=== PATIENT | female | born 1970 | race Caucasian/White ===

== ENCOUNTER → 2018-05-03 | Outpatient (CLI) | payer OTHER | LOC: M ADAMS 08:40 | DX: M25.511 Pain in right shoulder (principal); M19.011 Primary osteoarthritis, right shoulder | CPT/HCPCS: 73030 ==

== ENCOUNTER → 2019-06-29 | Outpatient (CLI) | payer OTHER ==
--- NOTE | 2019-06-29 19:00 | REP ---
Lumbar spine series: Five views. History: Sciatica. Findings: There is a mild levoconvex curve on the frontal view in the lumbar spine. Spina bifida occulta is noted at L5. Pedicles and posterior elements are otherwise intact. There is no evidence of spondylolysis or spondylolisthesis. There is osteoarthritic facet hypertrophy bilaterally at L4-5 and L5-S1, mild in degree. Lateral view showed degenerative disc narrowing at L5-S1, L4-5 and to a lesser extent L3-4. Sacrum and SI joints are intact. Impression: Degenerative spondylosis changes and mild levoconvex curvature as noted above. No acute bony abnormality. Electronically Signed by Tye Guadarrama MD 06/29/2019 07:27 P
--- NOTE | 2019-06-29 19:01 | REP ---
Bilateral hip study: Four views. History: Sciatica. Findings: AP and frog-leg views of both hips demonstrate smooth rounded femoral heads. There is minimal inferior femoral acetabular spurring bilaterally consistent with osteoarthritis. There is a periarticular soft-tissue calcification adjacent to the greater trochanter on the left consistent with calcific tendonitis or bursitis. Vascular calcification is noted. Impression: Periarticular soft-tissue calcification at the greater trochanter on the left. Minimal osteoarthritic changes. No acute bony abnormality. Electronically Signed by Tye Guadarrama MD 06/29/2019 07:27 P
== END ==
LOC: M ADAMS 08:19
PROVIDERS: ATTEND Physician Assistant Medical
DX: M54.30 Sciatica, unspecified side (principal); M54.17 Radiculopathy, lumbosacral region

== ENCOUNTER → 2019-08-24 | Outpatient (REF) | payer OTHER ==
[2019-08-24 16:24] LABS: HEMATOCRIT 45.6 % (36.0-47.0); HEMOGLOBIN 15.6 g/dl (12.0-15.5); MEAN CORPUSCULAR HEMOGLOBIN 34.1 pg (27.0-33.0); MEAN CORPUSCULAR HGB CONC 34.2 g/dl (32.0-36.5); MEAN CORPUSCULAR VOLUME 99.8 fl (80.0-96.0); PLATELET COUNT, AUTOMATED 322 10^3/uL (150-450); RED BLOOD COUNT 4.57 10^6/uL (4.00-5.40); WHITE BLOOD COUNT 10.7 10^3/uL (4.0-10.0)
[2019-08-24 16:53] LABS: HEMOGLOBIN A1c 5.4 %
[2019-08-24 16:57] LABS: C REACTIVE PROTEIN QUANTITATIV < 0.30 MG/DL (0.00-0.30); CHOLESTEROL LEVEL 366 MG/DL (<200); CHOLESTEROL RISK RATIO 5.809 (<5); HDL CHOLESTEROL 63 MG/DL (>40); LDL CHOLESTEROL 245 MG/DL (<100); NON-HDL-C 303 MG/DL; RHEUMATOID FACTOR QUANT < 10.0 IU/ML (<15.0); TOTAL 25(OH) VITAMIN D 11.9 NG/ML (30.0-100.0); TRIGLYCERIDES LEVEL 291 MG/DL (<150)
[2019-08-24 16:58] LABS: VITAMIN B12 LEVEL 316 PG/ML
[2019-08-24 16:59] LABS: FOLATE 7.2 NG/ML
[2019-08-24 17:13] LABS: ERYTHROCYTE SEDIMENTATION RATE 26 mm/hr (0-30)
[2019-08-31 00:07] LABS: ANA (HEP2) Negative (.); HLA-B27 Negative (.); Lyme Disease IgG/IgM Antibodie <0.91 ISR (0.00-0.90); Lyme Disease IgM Ab Quantitati <0.80 index (0.00-0.79)
== END ==
LOC: M SFHCADAM 14:33
PROVIDERS: ATTEND Physician Assistant
DX: R09.89 Other specified symptoms and signs involving the circulatory and respiratory systems (principal); I83.893 Varicose veins of bilateral lower extremities with other complications; M48.062 Spinal stenosis, lumbar region with neurogenic claudication; F17.210 Nicotine dependence, cigarettes, uncomplicated; G99.0 Autonomic neuropathy in diseases classified elsewhere; Q76.0 Spina bifida occulta; M47.9 Spondylosis, unspecified

== ENCOUNTER → 2019-09-13 | Outpatient (CLI) | payer OTHER ==
--- NOTE | 2019-09-13 11:03 | REPMRS ---
Patient History The patient states she has not had a clinical breast exam in over a year. Patient is postmenopausal and had first child at age 31. No known family history of cancer. Digital Mammo Screening Bilat: September 13, 2019 - Exam #: [id number] Bilateral CC and MLO view(s) were taken. Technologist: Angelica Chirinos, Technologist No prior studies available for comparison. FINDINGS: The breast tissue is heterogeneously dense. This may lower the sensitivity of mammography. There is no evidence of dominant mass, architectural distortion, or grouped microcalcification typical of malignancy. 3-D tomosynthesis shows no additional findings. Assessment: BI-RADS/ACR category 1 mammogram. Negative Mammogram. Recommendation Routine screening mammogram of both breasts in 1 year (for women over age 40). This patient's Lifetime Breast Cancer RIsk is estimated at 11.6 %. This mammogram was interpreted with the aid of an FDA-approved computer-aided dectection system. Electronically Signed By: Zhen Guadarrama MD 09/13/19 [id number]
--- NOTE | 2019-09-14 03:15 | REP ---
Clinical: Hypertension and chronic medical renal disease. Technique: Eden scale and color Doppler evaluation of the kidneys and renal vasculature using curved array transducer. Findings: The kidneys are essentially normal in contour size and echogenicity and reniform shape without hydronephrosis, nephrolithiasis, or renal mass lesion. Right kidney measures 10.6 x 6.0 x 4.2 cm and includes subcentimeter lower pole simple cyst. Left kidney measures 10.1 x 5.2 x 5.2 cm. Bladder is incompletely distended and grossly normal by current evaluation. Color Doppler evaluation of the renal vasculature demonstrates normal arterial wave patterns, velocities, renal aortic ratios, resistive indices and the acceleration time. No sonographic evidence for renal arterial stenosis noted. Renal vein is patent. Right Kidney: Peak arterial velocity: 188 cm/sec . Renal aortic ratio: 3.9 . Resistive indices: 0.62 - 0.68 . Acceleration times: 0.04 . Left kidney: Peak arterial velocity: 164 cm/sec . Renal aortic ratio: 3.4 . Resistive indices: 0.59 - 0.74 . Acceleration times: 0.02 - 0.05 . Impression: 1. Essentially normal appearance the bilateral kidneys with sub centimeter right renal cyst noted. 2. Elevated renal:aortic ratios with otherwise normal Doppler findings. This may be secondary to decreased aortic velocity. Correlation is recommended and if necessary MRA or CTA evaluation of the aorta and renal arteries may be considered. Electronically Signed by Marco Nayak MD 09/14/2019 03:06 A
--- NOTE | 2019-09-14 03:17 | REP ---
Clinical: Carotid bruit Technique: Eden scale and color Doppler evaluation using linear high frequency transducer Findings: Two-dimensional eden scale and color images demonstrate minimal atheromatous plaquing without appreciable narrowing. Color Doppler interrogation demonstrates normal arterial wave patterns and velocities with no significant spectral broadening. Normal flow direction is appreciated in the bilateral vertebral arteries. RIGHT (cm/s) LEFT (cm/s) ICA peak systolic velocity 106.0 110.0 ICA diastolic velocity 40.4 46.0 ECA peak systolic velocity 77.0 70 2.6 CCA peak systolic velocity 106.0 108.0 ICA/CCA ratio 1.00 1.02 Impression: No hemodynamically significant areas of narrowing or stenosis appreciated. Based on set standards narrowing falls within the less than 50% range. Electronically Signed by Marco Nayak MD 09/14/2019 03:09 A
== END ==
LOC: M RAD 07:20
PROVIDERS: ATTEND Physician Assistant
DX: R09.89 Other specified symptoms and signs involving the circulatory and respiratory systems (principal); Z12.31 Encounter for screening mammogram for malignant neoplasm of breast; Z78.0 Asymptomatic menopausal state

== ENCOUNTER → 2019-09-13 | Outpatient (CLI) | payer OTHER ==
--- NOTE | 2019-09-15 21:07 | ECHO ---
DATE OF PROCEDURE: 09/13/2019 REFERRING INDIVIDUAL: Zayra Interiano, Physician Public Information Director INDICATION: Cardiac murmur, unspecified. HEIGHT: 170 cm WEIGHT: 63 kg 2D MEASUREMENTS: Ventricular septum: 1.10 cm Posterior wall: 1.00 cm Left ventricle diastole: 3.8 cm Left atrium: 2.7 cm Left atrial volume index: 12 Aortic root: 3.3 cm Inferior vena cava: 1.5 cm DOPPLER MEASUREMENTS: No aortic regurgitation. No mitral regurgitation. No tricuspid regurgitation. No pulmonic regurgitation. Aortic valve velocity: 113 cm/s LVOT velocity: 108 cm/s Mitral E velocity: 57.0 cm/s Mitral A velocity: 67.3 cm/s Mitral deceleration time: 158 ms Pulmonary acceleration time: 137 ms MITRAL ANNULAR TISSUE DOPPLER: E prime lateral: 9.6 cm/s E prime septal: 8.2 cm/s DESCRIPTION: Rhythm was mostly sinus tachycardia with some periods of sinus bradycardia. Image quality was fair. No pericardial effusion. This was a 2D, M-mode, color flow Doppler and pulse wave Doppler examination and included mitral annular tissue Doppler. CONCLUSIONS: 1. Normal echocardiogram Doppler. 2. Normal left ventricle internal dimensions and wall thickness. Normal regional left ventricular (LV) wall motion and wall thickening. Normal LV systolic function. Left ventricular ejection fraction (LVEF) 64% (3D). LV diastolic function within normal limits for age. 3. Normal appearing and normally functioning cardiac valves.
== END ==
LOC: M CARPUL 09:00
PROVIDERS: ATTEND Physician Assistant
DX: R01.1 Cardiac murmur, unspecified (principal)

== ENCOUNTER → 2019-09-20 | Outpatient (REF) | payer OTHER | LOC: M SFHCADAM 13:21 | PROVIDERS: ATTEND Physician Assistant | DX: Z12.4 Encounter for screening for malignant neoplasm of cervix (principal) ==

== ENCOUNTER → 2019-09-21 | Outpatient (REF) | payer OTHER ==
[2019-09-21 13:09] LABS: CHOLESTEROL RISK RATIO 5.581 (<5)
== END ==
LOC: M SFHCADAM 08:27
PROVIDERS: ATTEND Physician Assistant
DX: M79.10 Myalgia, unspecified site (principal); E78.00 Pure hypercholesterolemia, unspecified

== ENCOUNTER → 2019-10-31 | Outpatient (CLI) | payer OTHER ==
--- NOTE | 2019-10-31 10:36 | REP ---
Clinical: Symptoms related to atherosclerotic disease and intermittent claudication. Technique: Real time eden scale and color Doppler evaluation of the bilateral lower extremity arterial vasculature using linear high frequency transducer. Findings: Eden scale and color images demonstrate severe bilateral atheromatous plaquing without obvious focal areas of stenosis or occlusion. Doppler interrogation demonstrates monophasic arterial wave patterns bilaterally. Right MYKE: 0.6 Left MYKE: 0.7 Peak systolic velocities (cm/sec) RIGHT LEFT Common femoral artery 52.1 88.7 Profunda femoris 48.5 85.2 SFA (proximal) 51.4 54.7 SFA (mid) 57.5 63.6 SFA (distal) 45.5 33.7 Popliteal artery 30.7 24.6 KELSEY (prox.) 28.1 12.0 Tibioperoneal trunk 31.0 28.9 ASPHALT STILL OPERATOR (prox.) 34.0 19.8 ASPHALT STILL OPERATOR (distal) 9.8 24.4 KELSEY (distal) 5.6 24.5 Impression: Severe bilateral atheromatous plaquing with decreased velocities. No focal area of stenosis or occlusion identified. Electronically Signed by Marco Nayak MD 10/31/2019 10:27 A
== END ==
LOC: M RAD 08:40
PROVIDERS: ATTEND Physician Assistant
DX: I70.213 Atherosclerosis of native arteries of extremities with intermittent claudication, bilateral legs (principal)

== ENCOUNTER → 2019-11-16 | Outpatient (REF) | payer OTHER ==
[2019-11-16 12:52] LABS: HEMATOCRIT 44.9 % (36.0-47.0); HEMOGLOBIN 14.7 g/dl (12.0-15.5); MEAN CORPUSCULAR HEMOGLOBIN 32.7 pg (27.0-33.0); MEAN CORPUSCULAR HGB CONC 32.7 g/dl (32.0-36.5); PLATELET COUNT, AUTOMATED 278 10^3/uL (150-450); RED BLOOD COUNT 4.49 10^6/uL (4.00-5.40); WHITE BLOOD COUNT 9.4 10^3/uL (4.0-10.0)
[2019-11-16 12:59] LABS: BLOOD UREA NITROGEN 7 MG/DL (7-18); CALCIUM LEVEL 9.8 MG/DL (8.5-10.1); CARBON DIOXIDE LEVEL 27 MEQ/L (21-32); CHLORIDE LEVEL 102 MEQ/L (98-107); CREATININE FOR GFR 0.84 MG/DL (0.55-1.30); GLOMERULAR FILTRATION RATE > 60.0 (>51); GLUCOSE, FASTING 91 MG/DL (70-100); POTASSIUM SERUM 4.2 MEQ/L (3.5-5.1); SODIUM LEVEL 137 MEQ/L (136-145)
== END ==
LOC: M LABDRWAD 12:25
PROVIDERS: ATTEND Physician Assistant
DX: Z01.818 Encounter for other preprocedural examination (principal)

== ENCOUNTER → 2019-12-21 | Outpatient (CLI) | payer OTHER ==
[~2019-12-21] MED LIST: ASPI81TA26 PO; ATOR40TA75 PO; CLOP75TA2 PO; CLOPIDOGREL 75 MG TAB As Ordered ONE; DULO1CAP4 PO; GABA-843 PO; HEPARIN 1,000 UNITS/ML 10ML VIAL (FOR RADIOLOGY& DIALYSIS ONLY)(J1644-10) As Ordered ONE; ISOVUE-300 61% 50ML VIAL (Q9967) As Ordered ONE; LIDOCAINE 1% MDV 20ML VIAL As Ordered ONE; MELO15TA28 PO; MIDAZOLAM INJ 2 MG/2 ML VIAL (J2250) As Ordered ONE; VITA200028 PO; diazePAM 5 MG TAB As Ordered ONE; fentaNYL 100 MCG/2 ML INJECTION (J3010) As Ordered ONE
[2019-12-21 07:03] LABS: HEMATOCRIT 44.5 % (36.0-47.0); HEMOGLOBIN 15.2 g/dl (12.0-15.5); MEAN CORPUSCULAR HEMOGLOBIN 33.3 pg (27.0-33.0); MEAN CORPUSCULAR HGB CONC 34.2 g/dl (32.0-36.5); MEAN CORPUSCULAR VOLUME 97.4 fl (80.0-96.0); PLATELET COUNT, AUTOMATED 265 10^3/uL (150-450); RED BLOOD COUNT 4.57 10^6/uL (4.00-5.40); WHITE BLOOD COUNT 8.9 10^3/uL (4.0-10.0)
[2019-12-21 07:28] LABS: ALBUMIN 4.1 GM/DL (3.2-5.2); ALT/SGPT 48 U/L (12-78); BILIRUBIN,TOTAL 0.9 MG/DL (0.2-1.0); BLOOD UREA NITROGEN 9 MG/DL (7-18); CALCIUM LEVEL 9.7 MG/DL (8.5-10.1); CARBON DIOXIDE LEVEL 29 MEQ/L (21-32); CHLORIDE LEVEL 105 MEQ/L (98-107); CREATININE FOR GFR 0.86 MG/DL (0.55-1.30); GLOMERULAR FILTRATION RATE > 60.0 (>51); GLUCOSE, FASTING 97 MG/DL (70-100); POTASSIUM SERUM 4.4 MEQ/L (3.5-5.1); SODIUM LEVEL 140 MEQ/L (136-145); TOTAL PROTEIN 7.6 GM/DL (6.4-8.2)
--- NOTE | 2019-12-21 09:17 | ROOPDOC ---
[facility] Report Of Operation Report of Operation DATE OF PROCEDURE: 12/21/19 PREPROCEDURE DIAGNOSES: Atherosclerosis the [place] vessels with short distance lifestyle limiting claudication POSTPROCEDURE DIAGNOSES: Same PROCEDURE: 1. Aortoiliofemoral arteriogram with bilateral femoral runoff 2. Left external iliac and common iliac balloon expandable stents: 2 (8 x 57), 7 x 37, 6 x 37 express stents 3. Completion arteriograms SURGEON: Joie Weiner MD ANESTHESIA: Local anesthesia with 7 mL lidocaine. Moderate intravenous conscious sedation that was supervised by Dr. Weiner. The patient was independent [place] in her by registered nurse assigned at the Department of radiology using automated blood pressure, EKG, and pulse oximetry. The detailed sedation record is probably stored in the hospital information system. The following is a brief sedation record: Start time 07:39, stop time 08:57, fentanyl 150 g IV, Versed 2 mg IV. INDICATION FOR PROCEDURE: This is a very pleasant 49-year-old patient with short distance long recovery lifestyle limiting claudication. She is a smoker, we've had lengthy discussions about the importance of smoking cessation for long-term limb preservation. The patient is willing to quit and has been receptive to our discussions. Today we plan on doing an arteriogram and we suspect aortoiliac disease. Her lower extremity arterial duplex did not show any focal occlusions, but her ABIs were 0.6 and she did have some calcifications through the lower ext remities. Risks benefits and alternatives to an arteriogram with potential intervention were explained to the patient and she is agreeable to proceed. Informed consent was obtained. INTERPRETATION: 1. The aorta is small and ectatic but patent. The right common iliac artery is occluded at the origin and does not reconstitute until the mid distal common femoral artery where thready collaterals fill the vessel. The left common iliac hypogastric and external iliac artery are heavily diseased and extremely dimi nutive in size. There is a large bulky calcified plaque at the origin of the common iliac artery that narrows the origin by about 80-90%. Distal to this there is extensive disease along the iliac vessels giving a diffuse narrowing of about 60-70%. It is difficult to see flow through the common femoral artery on the left as the sheath takes up nearly the entire vessel and limits flow. We performed a runoff through the sheath through the mid distal femoral vessels, and did not runoff further due to the fact that the patient had washout of contrast and it was difficult to see due to limited flow. It appears that the profunda and as a phase are widely patent proximally, with some calcified disease distally, although this is not well visualized. The tibial vessels were not examined on this procedure. 2. After angioplasty and stenting of the left common and external iliac arteries, there is widely patent flow with no extravasation, no embolization, and no dissection noted. This dramatically improved the patient's inflow to the left lower extremity and her collateral system. REPORT OF OPERATION: The patient was brought to the angiographic suite in stable condition. Her bilateral groins were prepped and draped in a sterile fashion. A timeout was performed. Sedation was administered without complication. Local anesthesia was administered to the skin and subcutaneous tissue over the left common femoral artery. A microneedle was used to access the artery under ultrasound guidance and a wire was passed through this access under fluoroscopic guidance and the needle was removed and a micro-sheath was placed. Through this access, we passed to Glidewire which was challenging to navigate through the heavily calcified and nearly occlusive plaque in the iliac system. The wire was challenging to keep out of dissection planes, that eventually we were able to navigate the wire into the true lumen of the aorta. Infusion catheter was advanced over the wire and aortoiliac arteriogram was performed. Please interpretation above. We performed a femoral arteriogram through the sheath in the left common femoral artery. Please interpretation above. Since the patient o nly had left iliac inflow to the lower extremities and we plan to do a femorofemoral bypass to improve flow to the right lower extremity, we wanted to ensure she had better inflow through the left. We stented her entire iliac system with balloon expandable stents. We started at the distal external iliac artery and placed a 6 x 37 express stent. We then placed a 7 x 37 express stent with a 1 cm overlap just proximal to this. Through the common iliac artery with a 1 cm overlap we started with an 8 x 57 express stent, and build that proximally with a 1 cm overlap with another 8 x 57 express stent. The patient has very small vessels, but we wanted to increase her inflow to at least an 8mm diameter to improve flow for her femorofemoral bypass and perfusion to her ipsilateral leg. We performed contrast injections between stents to ensure we had not created a dissection embolization or extravasation. Following stent placement, the patient had widely open inflow to her left lower extremity. This concluded our procedure for today. The next part of her procedure will be done in the operating room. The Mynx closure device was deployed at the left common femoral artery with good hemostasis. Pressure was held for 10 minutes the patient was returned to recovery in stable condition. She tolerated the procedure and the sedation well. ESTIMATED BLOOD LOSS: Approximately 10 mL. COMPLICATIONS: None. PLAN: Our plan is for the patient to return to clinic to check her left groin access site and at that time we will discuss options with her for bilateral common femoral endarterectomies with patch angioplasty and a left to right femorofemoral bypass. We will start her on Plavix today for her iliac stents. She will have her first dose in recovery. She can resume her preop diet. She can resume normal activity after 24 hours. No strenuous exercise or heavy lifting for 24 hours. Of note, the patient did have an allergy to morphine and said she had significant swelling after receiving morphine after an orthopedic procedure 20 years ago, but she tolerated the fentanyl during this procedure very well without any adverse reaction. JOIE WEINER MD Dec 21, 2019 09:17
[2019-12-21 12:53] VITALS: BP 129/74
== END ==
LOC: M IRPRO 06:21
PROVIDERS: ATTEND Surgery Vascular Surgery
DX: I70.213 Atherosclerosis of native arteries of extremities with intermittent claudication, bilateral legs (principal); F17.210 Nicotine dependence, cigarettes, uncomplicated
CPT/HCPCS: 37221; 37223; 75630; 80053; 85027; 99152; 99153; C1760; C1769; C1876; C1887; C1894; J1644; J2250; J3010; Q9967

== ENCOUNTER → 2020-03-29 | Outpatient (CLI) | payer OTHER ==
[~2020-03-29] MED LIST changes: -CLOPIDOGREL 75 MG TAB As Ordered ONE; -HEPARIN 1,000 UNITS/ML 10ML VIAL (FOR RADIOLOGY& DIALYSIS ONLY)(J1644-10) As Ordered ONE; -ISOVUE-300 61% 50ML VIAL (Q9967) As Ordered ONE; -LIDOCAINE 1% MDV 20ML VIAL As Ordered ONE; -MIDAZOLAM INJ 2 MG/2 ML VIAL (J2250) As Ordered ONE; -diazePAM 5 MG TAB As Ordered ONE; -fentaNYL 100 MCG/2 ML INJECTION (J3010) As Ordered ONE
--- NOTE | 2020-03-29 19:19 | REP ---
Clinical: Trauma. Technique: Four views of the left hemithorax. Findings: There is a nondisplaced fracture involving the anterolateral margin of the right fifth rib. Impression: Nondisplaced fracture along the anterolateral margin of the right fifth rib. Electronically Signed by Marco Nayak MD 03/29/2020 07:11 P
--- NOTE | 2020-03-29 19:22 | REP ---
Clinical: Trauma. Technique: PA and lateral views of the chest. Findings: Left basilar atelectasis and possible small left pleural effusion. Remainder of lung simons are clear. No pneumothorax. Mediastinum and cardiac silhouette are normal. Skeletal structures appear grossly intact. Impression: Left basilar atelectasis and small pleural reaction/effusion. Electronically Signed by Marco Nayak MD 03/29/2020 07:14 P
== END ==
LOC: M LABSMTC 11:24 → M ADAMS 11:24
PROVIDERS: ATTEND Anesthesiology
DX: S22.31XA Fracture of one rib, right side, initial encounter for closed fracture (principal); X58.XXXA Exposure to other specified factors, initial encounter; Y92.9 Unspecified place or not applicable; J98.11 Atelectasis; J90 Pleural effusion, not elsewhere classified

== ENCOUNTER → 2020-03-29 | Outpatient (REF) | payer OTHER ==
[2020-03-29 18:29] LABS: HEMATOCRIT 39.3 % (36.0-47.0); HEMOGLOBIN 13.1 g/dl (12.0-15.5); MEAN CORPUSCULAR HEMOGLOBIN 33.4 pg (27.0-33.0); MEAN CORPUSCULAR HGB CONC 33.3 g/dl (32.0-36.5); MEAN CORPUSCULAR VOLUME 100.3 fl (80.0-96.0); PLATELET COUNT, AUTOMATED 374 10^3/uL (150-450); RED BLOOD COUNT 3.92 10^6/uL (4.00-5.40); WHITE BLOOD COUNT 9.4 10^3/uL (4.0-10.0)
[2020-03-29 18:30] LABS: ALBUMIN 3.6 GM/DL (3.2-5.2); ALT/SGPT 27 U/L (12-78); BILIRUBIN,TOTAL 0.5 MG/DL (0.2-1.0); BLOOD UREA NITROGEN 6 MG/DL (7-18); CALCIUM LEVEL 9.3 MG/DL (8.5-10.1); CARBON DIOXIDE LEVEL 28 MEQ/L (21-32); CHLORIDE LEVEL 103 MEQ/L (98-107); CHOLESTEROL LEVEL 248 MG/DL (<200); CHOLESTEROL RISK RATIO 4.275 (<5); CREATININE FOR GFR 0.84 MG/DL (0.55-1.30); GLOMERULAR FILTRATION RATE > 60.0 (>51); GLUCOSE, FASTING 86 MG/DL (70-100); HDL CHOLESTEROL 58 MG/DL (>40); LDL CHOLESTEROL 162 MG/DL (<100); NON-HDL-C 190 MG/DL; POTASSIUM SERUM 4.2 MEQ/L (3.5-5.1); SODIUM LEVEL 137 MEQ/L (136-145); TOTAL PROTEIN 7.1 GM/DL (6.4-8.2); TRIGLYCERIDES LEVEL 141 MG/DL (<150)
== END ==
LOC: M SFHCADAM 11:20
PROVIDERS: ATTEND Physician Assistant
DX: E78.00 Pure hypercholesterolemia, unspecified (principal)

== ENCOUNTER → 2020-05-08 | Outpatient (CLI) | payer OTHER ==
[~2020-05-08] MED LIST changes: +DILA2TAB6 PO; +NICO21DI6 TD; +PANT40TA29 PO; +PERCOCET PO; +VITA50005 PO; +WELL100T2 PO
== END ==
LOC: M LABSMTC 09:25
PROVIDERS: ATTEND Anesthesiology
DX: Z01.818 Encounter for other preprocedural examination (principal); Z11.59 Encounter for screening for other viral diseases
CPT/HCPCS: C9803; U0003

== ENCOUNTER → 2020-05-11 | Outpatient (CLI) | payer OTHER ==
--- NOTE | 2020-04-26 14:48 | HPEPDOC ---
[facility] Medical History & Physical Date of Admission May 11, 2020 Date of Service: May 11, 2020 History and Physical Vascular surgery. Dr. Weiner HPI: The patient is a 49-year-old female status post angiogram 12/21/[address] Weiner with severe atherosclerosis in the [place] arteries with occlus ion of the right iliac system and recent stenting of the left iliac system. Her left iliac system and collaterals from this provide flow to the bilateral lower extremities. We were not able to open outflow through the right iliac system, and it was discussed with the patient following the procedure that Dr. Weiner would like to proceed with bilateral common femoral endarterectomies and a left to right femorofemoral bypass. The patient was agreeable to proceed. Medical clearance is requested and displaced of the chart. Cardiac clearance and stress study placed with the chart. The patient had low risk stress study 03/28/20. PMHx: PAD Tobacco use Dyslipidemia Neuropathy Final stenosis PSHX: Angiogram 12/21/19 left external iliac and common iliac stents Left knee surgery ALLERGIES: NKDA SOCHX: Current smoker 1 pack per day for 25 years FAMHX: Anxiety/depression ROS: As noted in HPI, otherwise 11pt ROS of systems reviewed and unremarkable. PE: Const: Appears medically stable. No signs of apparent distress present. Head/Face: Normal on inspection. ENMT: Tympanic membranes: intact. External nose WNL. Neck: Supple, no carotid bruits present Resp: No wheezing. Diminished breath sounds on the left in the basilar region, no crackles or rales CV: Rate is regular. Rhythm is regular. Abdomen: Bowel sounds are positive. Abdomen is soft, nontender, and nondistended . Lymph: No palpable or visible regional lymphadenopathy. Musculo:Gait steady, distal pulses not palpable. Capillary refill 2 seconds on the right and one second on the left. No ulcers on the feet are noted. DP and PT signals are faint and monophasic. Skin:No rashes or lesions Neuro:Alert and oriented x3, moves all extremities equally, no focal neurologic deficits noted. Psych: Pleasant and cooperative A&P: The patient is a 49-year-old female status post angiogram 12/21/[address] Weiner with severe atherosclerosis in the [place] arteries with occlusion of the right iliac system and recent stenting of the left iliac system. Her left iliac system and collaterals from this provide flow to the bilateral lower extremities. We were not able to open outflow through the right iliac system, and it was discussed with the patient following the procedure that Dr. Weiner would like to proceed with bilateral common femoral endarterectomies and a left to right femorofemoral bypass. Medical clearance is placed in the chart. Cardiac clearance and stress study placed with the chart. Stress study is noted to be low risk. Informed consent is placed in the chart. Transfusion consent is placed with the chart. NPO Ancef 2 g IV preoperatively. Continue aspirin/statin. The patient is advised to hold Plavix the day prior to the procedure and the day of the procedure. CBC, BMP, INR, PTT, type and screen. IV fluids as per anesthesia. Tobacco use. The patient has been strongly advised to quit smoking. Potential health hazards are discussed with the patient including the advancement of atherosclerotic disease. We have discussed with the patient that continuing to smoke is associated with progression of disease, greater risk of complications and poor response of therapy. We have reviewed with the patient that vascular interventions are likely to fail if the patient continues to smoke. Vital Signs Admission vital signs pending. Laboratory Data Labs 24H Admission labs pending. Home Medications Scheduled Aspirin (Aspirin EC) 81 Mg Tablet.dr, 81 MG PO DAILY Atorvastatin Calcium (Atorvastatin Calcium) 40 Mg Tablet, 40 MG PO DAILY Clopidogrel Bisulfate (Clopidogrel) 75 Mg Tablet, 75 MG PO DAILY Duloxetine Hcl (Duloxetine HCl) 20 Mg Capsule.dr, 20 MG PO DAILY Gabapentin (Gabapentin) 300 Mg Capsule, 300 MG PO TID Meloxicam (Meloxicam) 15 Mg Tablet, 15 MG PO DAILY Miscellaneous Medications Ergocalciferol (Vitamin D2) (Vitamin D2) 2,000 Unit Tablet, 2,000 UNIT PO Allergies Coded Allergies: morphine (Verified Allergy, Intermediate, 12/21/19) A-FIB/CHADSVASC A-FIB History Current/History of A-Fib/PAF?: No Current PO Anticoag Therapy: Judy Mckeon Apr 26, 2020 14:48
--- NOTE | 2020-05-10 18:59 | HPE ---
DATE OF SCHEDULED ADMISSION: 05/11/2020 This is a preoperative history and physical for a case scheduled on 05/11/2020. CHIEF COMPLAINT: Bilateral lower extremity atherosclerosis of the [place] arteries with lifestyle limiting claudication. HISTORY OF THE PRESENT ILLNESS: Ms. Forte is a very pleasant 50-year-old patient with severe atherosclerosis of the [place] arteries with occlusion of the right iliac system and recent stenting of the left iliac system. Her left iliac system and collaterals from this provide flow to the bilateral lower extremities. We were not able to open outflow through the right iliac system, and we discussed with the patient following the procedure that we would like to proceed with bilateral common femoral endarterectomies and a left to right femoral-femoral bypass. The patient was agreeable to proceed. We initially planned to do her a few weeks ago; however, she had had a fall and had a nondisplaced rib fracture. I felt that it would be difficult for her to undergo a lengthy anesthesia, and do well afterwards without increased risk of atelectasis and postoperative pneumonia due to the rib fracture. Therefore, we gave the patient an incentive spirometer and postponed her surgery until today. She is doing much better status post her fall and is able to do deep breathing with her incentive spirometer without difficulty. We had lengthy discussions on multiple occasions about smoking cessation. The patient continues to try to cut back, and we have asked her to avoid using nicotine supplementation due to her severe peripheral vascular disease. Nicotine patches provide continuous vasoconstriction, which can be very detrimental in patients with severe vascular disease. She will continue to work towards her effort of smoking cessation. MEDICATIONS: - aspirin 81 mg daily - atorvastatin 40 mg daily - gabapentin 900 mg three times a day - Plavix 75 mg daily - vitamin D 1.25 mg capsule weekly ALLERGIES: MORPHINE. PAST MEDICAL HISTORY: Peripheral vascular disease. High cholesterol. SURGICAL HISTORY: Left knee anterior cruciate ligament (ACL) repair. Left elbow surgery. Recent arteriogram. FAMILY HISTORY: Heart disease. SOCIAL HISTORY: Patient is a long-term smoker, one pack per day, who has now cut down considerably and is trying to quit tobacco. She has a 25 pack-year history of tobacco use. She denies alcohol or illicit drug use. REVIEW OF SYSTEMS: CONSTITUTIONAL: She denies chills, fever, weight gain or weight loss. EYES: She denies vision changes. EARS, NOSE, MOUTH and THROAT: She denies hearing loss, congestion or dysphagia. CARDIOVASCULAR: Denies chest pain and palpitations. RESPIRATORY: Pleuritic chest pain has resolved, shortness of breath is rare, denies hemoptysis or cough. GASTROINTESTINAL: Denies abdominal pain, constipation, diarrhea, nausea or vomiting. GENITOURINARY: Denies dysuria. MUSCULOSKELETAL: Reports intermittent claudication. Denies myalgia pain or trouble walking. SKIN: Denies skin cancer, rash or wound. NEUROLOGIC: Denies focal deficits, headaches or seizures. PSYCHIATRIC: Denies anxiety or depression. ENDOCRINE: Denies diabetes, hyper or hypothyroidism. HEMATOLOGIC: (HEME): Denies anemia or excessive bruising. PHYSICAL EXAMINATION: On exam, patient is afebrile and vital signs are stable. CONSTITUTIONAL: She appears medically stable. No signs of distress are present. She is well groomed. HEAD AND FACE: Normal on inspection. Normocephalic. EARS, NOSE, MOUTH and THROAT: Tympanic membranes are intact. External nose within normal limits. NECK: Supple. No carotid bruits present. RESPIRATORY: No wheezing. Clear to auscultation. CARDIOVASCULAR: Regular rate and rhythm. ABDOMEN: Bowel sounds positive. Abdomen is soft, nontender, nondistended. LYMPHATICS: No palpable or visible lymphadenopathy. MUSCULOSKELETAL: Her gait is steady. Distal pulses not palpable. Capillary refill 2 seconds on the right and 1 second on the left. Feet are warm. No ulcers on the feet are noted. Dorsalis pedis (DP) and posterior tibialis (PT) signals are faint and monophasic. SKIN: No rashes or lesions. NEUROLOGIC: Alert and oriented times three, moves all extremities equally. No focal neurologic deficits noted. PSYCHIATRIC: Pleasant and cooperative. ASSESSMENT AND PLAN: Very pleasant 50-year-old patient with severe atherosclerosis of the [place] arteries and lifestyle-limiting claudication, status post stenting of the left iliac system with history of tobacco abuse. 1. Continue incentive spirometer perioperatively 2. Continue with efforts for smoking cessation. 3. Will proceed with bilateral common femoral endarterectomies with patch angioplasty and [id number] femoral-femoral bypass. We appreciate the opportunity to participate in the care of this patient. CORY
[~2020-05-11] VITALS: Ht 165.1 cm; Wt 72.5 kg
[~2020-05-11] MED LIST changes: +BUPIVACAINE/EPIN 0.5% 30 ML VIAL As Ordered ONE; +HEPARIN SOD (PORCINE) 5000UNITS/ML 1ML VIAL/SYRINGE As Ordered ONE; +LIDOCAINE 1% MDV 20ML VIAL SQ PRN; +LIDOCAINE 2% 100MG/5ML SDV (FOR ANES.) As Ordered ONE; +LR 1,000 ML IV ONE; +MIDAZOLAM INJ 2MG/2ML VIAL (J2250 PER 1MG) As Ordered ONE; +ONDANSETRON 4MG/2ML VIAL As Ordered ONE; +ROCURONIUM BROMIDE 50 MG/5 ML VIAL As Ordered ONE; +SUGAMMADEX SODIUM 500 MG/5 ML VIAL (BRIDION) As Ordered ONE; +THROMBIN SOLN 5,000 UNITS VIAL As Ordered ONE; +ceFAZolin SOD 2 GM in IV 1 EA IV ONE; +dexameTHASONE 4 MG/ML 1ML VIAL (J1100 PER 1MG) As Ordered ONE; +fentaNYL 100 MCG/2 ML INJECTION (J3010) As Ordered ONE; +propofoL 200 MG/20 ML VIAL As Ordered ONE
[2020-05-11 07:02] LABS: HEMATOCRIT 40.8 % (36.0-47.0); HEMOGLOBIN 13.9 g/dl (12.0-15.5); MEAN CORPUSCULAR HEMOGLOBIN 32.8 pg (27.0-33.0); MEAN CORPUSCULAR HGB CONC 34.1 g/dl (32.0-36.5); MEAN CORPUSCULAR VOLUME 96.2 fl (80.0-96.0); PLATELET COUNT, AUTOMATED 264 10^3/uL (150-450); RED BLOOD COUNT 4.24 10^6/uL (4.00-5.40); WHITE BLOOD COUNT 11.2 10^3/uL (4.0-10.0)
[2020-05-11 07:10] LABS: INR 0.9; PARTIAL THROMBOPLASTIN TIME 33.5 SECONDS (25.0-38.4); PROTHROMBIN TIME 11.9 SECONDS (11.8-14.0)
[2020-05-11 07:28] LABS: BLOOD UREA NITROGEN 7 MG/DL (7-18); CALCIUM LEVEL 9.6 MG/DL (8.5-10.1); CARBON DIOXIDE LEVEL 27 MEQ/L (21-32); CHLORIDE LEVEL 107 MEQ/L (98-107); CREATININE FOR GFR 0.92 MG/DL (0.55-1.30); GLOMERULAR FILTRATION RATE > 60.0 (>51); GLUCOSE, FASTING 104 MG/DL (70-100); POTASSIUM SERUM 4.1 MEQ/L (3.5-5.1); SODIUM LEVEL 139 MEQ/L (136-145)
[2020-05-11 07:31] VITALS: BP 140/84
--- NOTE | 2020-05-11 09:55 | ROOPDOC ---
[facility] Report Of Operation Report of Operation DATE OF PROCEDURE: 05/11/20 The patient's procedure was rescheduled. On discussion with her this morning prior to her procedure, she told the preoperative nurse that she took her Plavix yesterday, and then relayed to me that she took her Plavix 2 days ago, but held it yesterday and today. It is unclear exactly when the patient did or did not take her Plavix, but it seems likely she only held it today. The patient was instructed to hold her Plavix from 05/08/2020, and these instructions were given to her with multiple verbal communications as well as a written letter sent to her home. I discussed with her that because she is having extensive open vascular surgery, and tunneling for the femoral to femoral bypass, it is too risky to proceed at this time due to higher risk of bleeding complications with Plavix. We will reschedule the patient as soon as possible, and ever reiterated to her the importance of holding her Plavix prior to surgery. Additionally, the patient reported to me that she broke her fifth toe about a week and half ago. She says she stubbed it and it has been hurting ever since. She did not receive medical care for this. She did not discuss with her primary doctor, nor did she go to the emergency room for an x-ray or workup. On my exam, the right fifth toe is somewhat swollen, very tender to palpation, but no obvious deformity or crepitance is noted. Initially, I told the patient we would obtain an x-ray postop, but since her surgery has been canceled for today, I asked her if she would like to go to the emergency room to be evaluated. While discussing this with her, she is ambulating around the room picking up her belongings without any signs of discomfort in her right foot. She says she would prefer not to go to the ER and will discuss her toe pain with her primary doctor and see if they feel she needs further evaluation. I encouraged her to follow through with this. She is agreeable to this plan. JOIE MENDEZ MD May 11, 2020 09:55
== END ==
LOC: M OR 06:36 → UNDOADMIN 06:36 → M LAB 06:36 → EDSTATUS 07:30
PROVIDERS: ATTEND Surgery Vascular Surgery
DX: I70.203 Unspecified atherosclerosis of native arteries of extremities, bilateral legs (principal)
CPT/HCPCS: 36415; 80048; 85027; 85610; 85730; 86850; 86900; 86901; 87486; 87581; 87633; 87798; J1644

== ENCOUNTER → 2020-05-12 | Outpatient (CLI) | payer OTHER ==
[~2020-05-12] MED LIST changes: -BUPIVACAINE/EPIN 0.5% 30 ML VIAL As Ordered ONE; -HEPARIN SOD (PORCINE) 5000UNITS/ML 1ML VIAL/SYRINGE As Ordered ONE; -LIDOCAINE 1% MDV 20ML VIAL SQ PRN; -LIDOCAINE 2% 100MG/5ML SDV (FOR ANES.) As Ordered ONE; -LR 1,000 ML IV ONE; -MIDAZOLAM INJ 2MG/2ML VIAL (J2250 PER 1MG) As Ordered ONE; -ONDANSETRON 4MG/2ML VIAL As Ordered ONE; -ROCURONIUM BROMIDE 50 MG/5 ML VIAL As Ordered ONE; -SUGAMMADEX SODIUM 500 MG/5 ML VIAL (BRIDION) As Ordered ONE; -THROMBIN SOLN 5,000 UNITS VIAL As Ordered ONE; -ceFAZolin SOD 2 GM in IV 1 EA IV ONE; -dexameTHASONE 4 MG/ML 1ML VIAL (J1100 PER 1MG) As Ordered ONE; -fentaNYL 100 MCG/2 ML INJECTION (J3010) As Ordered ONE; -propofoL 200 MG/20 ML VIAL As Ordered ONE
== END ==
LOC: M LABSMTC 08:59
PROVIDERS: ATTEND Anesthesiology
DX: Z01.818 Encounter for other preprocedural examination (principal); Z11.59 Encounter for screening for other viral diseases
CPT/HCPCS: C9803; U0003

== ENCOUNTER 2020-05-17 09:42 | Inpatient (IN) | payer OTHER ==
--- NOTE | 2020-05-16 16:31 | CR.PDOC ---
General Date of Consultation: May 17, 2020 Consultation CHIEF COMPLAINT: Bilateral lower extremity atherosclerosis of the [place] arteries with lifestyle limiting claudication. HISTORY OF THE PRESENT ILLNESS: Ms. Forte is a very pleasant 50-year-old patient with severe atherosclerosis of the [place] arteries with occlusion of the right iliac system and recent stenting of the left iliac system. Her left iliac system and collaterals from this provide flow to the bilateral lower extremities. We were not able to open outflow through the right iliac system, and we discussed with the patient following the procedure that we would like to proceed with bilateral common femoral endarterectomies and a left to right femoral-femoral bypass. The patient was agreeable to proceed. We initially planned to do her a few weeks ago; however, she had had a fall and had a nondisplaced rib fracture. I felt that it would be difficult for her to undergo a lengthy anesthesia, and do well afterwards without increased risk of atelectasis and postoperative pneumonia due to the rib fracture. Therefore, we gave the patient an incentive spirometer and postponed her surgery until surgery date last week, but we had to postpone the procedure again because the patient did not hold her Plavix prior to the procedure. Because this is extensive vascular surgery, bilateral common femoral endarterectomies, and tunneling for the femorofemoral bypass, I did not feel it was safe to proceed with full Plavix anticoagulation. The bleeding risk was too high. Therefore we scheduled the patient for today. We had lengthy discussions on multiple occasions about smoking cessation. The patient continues to try to cut back, and we have asked her to avoid using nicotine supplementation due to her severe peripheral vascular disease. Nicotine patches provide continuous vasoconstriction, which can be very detrimental in patients with severe vascular disease. She will continue to work towards her effort of smoking cessation. MEDICATIONS: - aspirin 81 mg daily - atorvastatin 40 mg daily - gabapentin 900 mg three times a day - Plavix 75 mg daily - vitamin D 1.25 mg capsule weekly ALLERGIES: MORPHINE. PAST MEDICAL HISTORY: Peripheral vascular disease. High cholesterol. SURGICAL HISTORY: Left knee anterior cruciate ligament (ACL) repair. Left elbow surgery. Recent arteriogram. FAMILY HISTORY: Heart disease. SOCIAL HISTORY: Patient is a long-term smoker, one pack per day, who has now cut down considerably and is trying to quit tobacco. She has a 25 pack-year history of tobacco use. She denies alcohol or illicit drug use. REVIEW OF SYSTEMS: CONSTITUTIONAL: She denies chills, fever, weight gain or weight loss. EYES: She denies vision changes. EARS, NOSE, MOUTH and THROAT: She denies hearing loss, congestion or dysphagia. CARDIOVASCULAR: Denies chest pain and palpitations. RESPIRATORY: Pleuritic chest pain has resolved, shortness of breath is rare, denies hemoptysis or cough. GASTROINTESTINAL: Denies abdominal pain, constipation, diarrhea, nausea or vomiting. GENITOURINARY: Denies dysuria. MUSCULOSKELETAL: Reports intermittent claudication. Denies myalgia pain or trouble walking. SKIN: Denies skin cancer, rash or wound. NEUROLOGIC: Denies focal deficits, headaches or seizures. PSYCHIATRIC: Denies anxiety or depression. ENDOCRINE: Denies diabetes, hyper or hypothyroidism. HEMATOLOGIC: (HEME): Denies anemia or excessive bruising. PHYSICAL EXAMINATION: On exam, patient is afebrile and vital signs are stable. CONSTITUTIONAL: She appears medically stable. No signs of distress are present. She is well groomed. HEAD AND FACE: Normal on inspection. Normocephalic. EARS, NOSE, MOUTH and THROAT: Tympanic membranes are intact. External nose within normal limits. NECK: Supple. No carotid bruits present. RESPIRATORY: No wheezing. Clear to auscultation. CARDIOVASCULAR: Regular rate and rhythm. ABDOMEN: Bowel sounds positive. Abdomen is soft, nontender, nondistended. LYMPHATICS: No palpable or visible lymphadenopathy. MUSCULOSKELETAL: Her gait is steady. Distal pulses not palpable. Capillary refill 2 seconds on the right and 1 second on the left. Feet are warm. No ulcers on the feet are noted. Dorsalis pedis (DP) and posterior tibialis (PT) signals are faint and monophasic. Right fifth toe is slightly swollen and tender to palpation. SKIN: No rashes or lesions. NEUROLOGIC: Alert and oriented times three, moves all extremities equally. No focal neurologic deficits noted. PSYCHIATRIC: Pleasant and cooperative. ASSESSMENT AND PLAN: Very pleasant 50-year-old patient with severe atherosclerosis of the [place] arteries and lifestyle-limiting claudication, status post stenting of the left iliac system with history of tobacco abuse. 1. Continue incentive spirometer perioperatively 2. Continue with efforts for smoking cessation. 3. Will proceed with bilateral common femoral endarterectomies with patch angioplasty and [id number] femoral-femoral bypass. Hold Plavix from 05/14/2020 for procedure 05/18/2020. We appreciate the opportunity to participate in the care of this patient. Allergies Coded Allergies: morphine (Verified Allergy, Severe, swelling, memory loss, 05/16/20) Home Medications Scheduled Aspirin (Aspirin EC) 81 Mg Tablet.dr, 81 MG PO DAILY, (Reported) Atorvastatin Calcium (Atorvastatin Calcium) 40 Mg Tablet, 80 MG PO DAILY, (Reported) Clopidogrel Bisulfate (Clopidogrel) 75 Mg Tablet, 75 MG PO DAILY for 30 Days, #30 Ergocalciferol (Vitamin D2) (Vitamin D2) 50,000 Units Cap, 50,000 UNITS PO QWEEK, (Reported) Thursday Gabapentin (Gabapentin) 300 Mg Capsule, 900 MG PO TID, (Reported) Nicotine (Nicoderm Cq) 21 Mg/24 Hr Patch.td24, 21 MG TD DAILY, (Reported) Pantoprazole Sodium (Pantoprazole Sodium) 40 Mg Tablet.dr, 40 MG PO DAILY, (Reported) JOIE MENDEZ MD May 16, 2020 16:31
[~2020-05-17] VITALS: Ht 170.2 cm; Wt 72.9 kg
[~2020-05-17 09:42] MED LIST changes: -DILA2TAB6 PO; -PANT40TA29 PO; +PANT40TA3 PO; -PERCOCET PO; -WELL100T2 PO
[2020-05-17] MEDS ORDERED: fentaNYL 100 MCG/2 ML INJECTION (J3010) As Ordered ONE (10:12)
[2020-05-17] MEDS ORDERED: propofoL 200 MG/20 ML VIAL As Ordered ONE (10:12)
[2020-05-17] MEDS ORDERED: SUGAMMADEX SODIUM 500 MG/5 ML VIAL (BRIDION) As Ordered ONE (10:12)
[2020-05-17] MEDS ORDERED: dexameTHASONE 4 MG/ML 1ML VIAL (J1100 PER 1MG) As Ordered ONE (10:12)
[2020-05-17] MEDS ORDERED: ACETAMINOPHEN 1000MG 100ML IV BTL (OFIRMEV) (J0131 PER 10MG) As Ordered ONE (10:12)
[2020-05-17] MEDS ORDERED: ONDANSETRON 4MG/2ML VIAL As Ordered ONE (10:12)
[2020-05-17] MEDS ORDERED: PHENYLEPHRINE 10MG/ML 1ML VIAL (J2370 PER 1) As Ordered ONE (10:12)
[2020-05-17] MEDS ORDERED: LIDOCAINE 2% 100MG/5ML SDV (FOR ANES.) As Ordered ONE (10:12)
[2020-05-17] MEDS ORDERED: MIDAZOLAM INJ 2MG/2ML VIAL (J2250 PER 1MG) As Ordered ONE (10:13)
[2020-05-17] MEDS ORDERED: ROCURONIUM BROMIDE 50 MG/5 ML VIAL As Ordered ONE ×2 (10:13→13:51)
[2020-05-17] MEDS ORDERED: LR 1,000 ML IV ONE (10:30)
[2020-05-17] MEDS ORDERED: BUPIVACAINE/EPIN 0.25% 30 ML VIAL As Ordered ONE (11:41)
[2020-05-17] MEDS ORDERED: BUPIVACAINE/EPIN 0.5% 30 ML VIAL As Ordered ONE (11:41)
[2020-05-17] MEDS ORDERED: THROMBIN SOLN 20,000 UNITS KIT As Ordered ONE (11:41)
[2020-05-17] MEDS ORDERED: HEPARIN SOD (PORCINE) 5000UNITS/ML VIAL (J1644 PER 1000UNITS) As Ordered ONE ×3 (11:42→13:41)
[2020-05-17] MEDS ORDERED: ceFAZolin 2 GM/D5W 50 ML IV BAG (J0690 PER 500MG) As Ordered ONE (12:02)
[2020-05-17] MEDS ORDERED: HYDROmorphone HCL 2 MG/ML 1ML VIAL (J1170) As Ordered ONE (13:34)
[2020-05-17] MEDS ORDERED: ceFAZolin 2 GM/D5W 50 ML IV BAG (J0690 PER 500MG) IV ONE (14:25)
[2020-05-17] MEDS ORDERED: HYDROmorphone 2 MG TAB PO PRN (16:45)
--- NOTE | 2020-05-17 17:08 | ROOPDOC ---
[facility] Report Of Operation Report of Operation DATE OF PROCEDURE: 05/17/20 PREPROCEDURE DIAGNOSES: Atherosclerosis the [place] arteries with severe claudication and rest pain POSTPROCEDURE DIAGNOSES: Same PROCEDURE: 1. Right common femoral endarterectomy with xenosure patch angioplasty 2. Left common femoral endarterectomy with xenosure patch angioplasty 3. Left to right femoral-femoral bypass with 6 mm ringed PTFE graft SURGEON: Joie Weiner MD ANESTHESIA: General anesthesia and local anesthesia INDICATION FOR PROCEDURE: This is a very pleasant 50-year-old patient with worsening bilateral peripheral vascular disease with short distance long recovery lifestyle limiting claudication and rest pain. She has inflow through the left iliac system, near occlusion of the left common femoral artery, some collaterals over to the right common femoral artery, some plaque in the right common femoral artery and very little outflow to the right lower extremity. Risks benefits alternatives to bilateral common femoral endarterectomy with vein patch angioplasty and left to right femoral-femoral bypass were explained to the patient. She is agreeable to proceed. Informed consent was obtained. REPORT OF OPERATION: The patient was brought to the operating room in stable condition. General anesthesia and antibiotics were administered without complication. Her bilateral groins were prepped and draped in a sterile fashion, and Ioban was placed over the skin. A timeout was performed. An oblique incision was made over the inguinal ligament in the right groin and carried down to the subcutaneous tissue with Bovie cautery. Bridging veins were suture ligated and divided. We continued our section down to the femoral sheath. The femoral sheath was opened longitudinally and the femoral vessels were skeletonized proximally and distally. Vesseloops replaced from the circumflex vessels superficial femoral artery and the profunda. Space was left for proximal common femoral artery clear. We then turned our attention to the left groin. An oblique incision was made over the ankle ligament carried down to subcutaneous tissue with Bovie cautery. Bridging veins were suture ligated and divided. The femoral sheath was opened longitudinally and the femoral vessels were skeletonized proximally and distally. We noted heavier plaque in the left common femoral artery than the right. It felt densely calcified. We placed Vesseloops from the circumflex vessels and the profunda in the SFA. 5000 units of heparin was given by anesthesia and allowed to circulate. We secured the clamp on the proximal left common femoral artery and the Vesseloops and a longitudinal arteriotomy was made over the area of heavy plaque onto normal vessel proximally and distally. We then used a plaque elevator to elevate the plaque circumferentially and it was transected with a pot scissors. We further the plaque out proximally and distally. There was some granular plaque that was carefully removed and irrigated. All loose intima and debris was removed. Following this, we close the arteriotomy with patch angioplasty with a xenosure patch with a running 5-0 Prolene hemostatic suture. Before the final sutures are placed, we flushed the inflow and the outflow arteries and then placed her final sutures after irrigated with heparinized saline. Flow was restored. Good hemostasis was noted. We tunneled a 6 mm ringed PTFE graft from the right groin to the left groin. We gave additional heparin and allow this to circulate. We resecure the clamp and Vesseloops on the left femoral vessels. An arteriotomy was made in the patch. The end of the graft was beveled. We anastomosis the graft an end-to-side fashion to the artery over the patch with a running 5-0 Prolene hemostatic suture. Before the final sutures are placed, we flushed the inflow and outflow artery with a clamp on the graft area we then irrigated with heparinized saline and placed her final sutures. Flow was restored and good hemostasis was noted. We then returned to the right groin. Additional heparin was given and allowed to circulate. A clamp was placed on the common femoral artery and the Vesseloops distally were secured. An arteriotomy was made longitudinally and a focal area of heavy plaque was removed. The rest of the vessel was fairly free from plaque. Irrigated with heparinized saline. We then anastomosed xenosure patch in a running fashion with 5-0 Prolene hemostatic suture. Before the final sutures were placed, we flushed the inflow and outflow artery and irrigated with heparinized saline. We then placed the final sutures and restored flow to the leg. Good hemostasis was noted. We then beveled the end of the graft for tension-free anastomosis and an end-to-side fashion to the right femoral vessel. We then resecure the clamp and the Vesseloops and an arteriotomy was made in the patch. The graft was anastomosed in an end-to-side fashion with hemostatic 5-0 Prolene suture. Before the final sutures are placed, we flushed the inflow outflow artery, and we flushed flow through the graft. We noted very brisk flow through the graft. We irrigated with heparinized saline and placed the final sutures and then flow was restored through the graft and the common femoral artery than outflow to the leg. The patient tolerated this well. Good hemostasis was noted. Doppler confirmed excellent flow through the SFA profunda on both the right and the left. There was excellent flow through the graft. Both groins were irrigated with copious amounts of normal saline. Local anesthesia was a sed high school teacher to the skin and subcutaneous tissue around both incisions. We approximated the tissue of the femoral sheath with 2-0 Vicryl suture. We closed the fascial layer s of the groin in 4 layers with running 2-0 Vicryl suture. We approximated the deep dermal layer with interrupted 4-0 Vicryl sutures. The skin was closed with skin gabe. This was done first in the right groin, then the left groin. Once both groins were closed, the Ioban was removed and we thoroughly cleaned both incisions and covered them with 4 x 4 and Tegaderms. The patient was allowed to awaken from anesthesia was taken to recovery in stable condition. She tolerated the surgery and anesthesia well. ESTIMATED BLOOD LOSS: Approximately 50 mL. COMPLICATIONS: None. PLAN: We will restart the patient's Plavix tomorrow. Okay to restart aspirin. Okay for DVT prophylaxis starting tomorrow evening. Patient will be on bed rest tonight, but does not need flat bed rest. Tomorrow morning, we will DC the Tompkins and start her ambulation and activity with assistance. We will encourage high- protein diet to help with wound healing. Absolutely no nicotine replacement. We will see how she does over the next day or 2, and plan for discharge possibly Thursday or Thursday. JOIE WEINER MD May 17, 2020 17:08
[2020-05-17] MEDS ORDERED: fentaNYL 100 MCG/2 ML INJECTION (J3010) IV PRN (17:30)
[2020-05-17] MEDS ORDERED: ONDANSETRON 4MG/2ML VIAL IV PRN (17:30)
[2020-05-17] MEDS ORDERED: LR 1,000 ML IV SCH (17:30)
[2020-05-17] MEDS ORDERED: PERCOCET 5MG/325MG TAB PO PRN (17:30)
--- NOTE | 2020-05-17 17:40 | HPEPDOC ---
General Date of Admission May 17, 2020 at 09:42 Date of Service: May 17, 2020 Chief Complaint The patient is a 50-year-old female admitted with a reason for visit of Atherosclerosis [place] Vessels Lower Extremities. Source: Patient Exam Limitations: No limitations Severity: Moderate History of Present Illness Patient is 50 years old female with past medical history of hyperlipidemia, peripheral vascular diseases was admitted to the hospital for elective bilateral femoral endarterectomy, [id number] femoral-femoral bypass. Surgical intervention was done today by Dr. Hancock, patient tolerated procedure well. Of note patient has a long history of peripheral vascular diseases due to severe atherosclerosis of [place] arteries with occlusion of the right iliac system and recent stenting of the left iliac system. Patient denied fever, chills, nausea, vomiting, chest pain, palpitations diarrhea or dysuria Home Medications Scheduled Aspirin (Aspirin EC) 81 Mg Tablet.dr, 81 MG PO DAILY, (Reported) Atorvastatin Calcium (Atorvastatin Calcium) 40 Mg Tablet, 80 MG PO DAILY, (Reported) Clopidogrel Bisulfate (Clopidogrel) 75 Mg Tablet, 75 MG PO DAILY Ergocalciferol (Vitamin D2) (Vitamin D2) 50,000 Units Cap, 50,000 UNITS PO QWEEK , (Reported) Thursday Gabapentin (Gabapentin) 300 Mg Capsule, 900 MG PO TID, (Reported) Nicotine (Nicoderm Cq) 21 Mg/24 Hr Patch.td24, 21 MG TD DAILY, (Reported) Pantoprazole Sodium (Pantoprazole Sodium) 40 Mg Tablet.dr, 40 MG PO DAILY, (Reported) Allergies Coded Allergies: morphine (Verified Allergy, Severe, swelling, memory loss, 05/16/20) Past Medical History Medical History Peripheral vascular disease. Hyperlipidemia Surgical History Left knee anterior cruciate ligament (ACL) repair. Left elbow surgery. Recent arteriogram. Family History I personally reviewed family history and found not pertinent Social History * Smoker: current smoker Alcohol: Denies Drugs: denies A-FIB/CHADSVASC A-FIB History Current/History of A-Fib/PAF?: No Current PO Anticoag Therapy: No Review of Systems Constitutional: Denies: Chills, Fever Eyes: Denies: Pain ENT: Denies: Head Aches Skin: Denies: Rash Pulmonary: Denies: Dyspnea Cardiovascular: Denies: Chest Pain, Palpitations Gastrointestinal: Denies: Nausea Genitourinary: Denies: Dysuria Hematologic: Denies: Bruising Endocrine: Denies: Polydipsia Musculoskeletal: Denies: Neck Pain, Back Pain Neurological: Denies: Weakness Psych: Reports: Mood Normal Physical Examination General Exam: Positive: Alert, Cooperative Eye Exam: Positive: PERRLA ENT Exam: Positive: Atraumatic, Mucous membr. moist/pink Neck Exam: Positive: Supple; Negative: JVD Chest Exam: Positive: Diminished Heart Exam: Positive: Rate Normal Telemetry: Positive: No significant arrhythmia Abdomen Exam: Positive: Normal bowel sounds Extremity Exam: Positive: Normal pulses; Negative: Clubbing, Cyanosis Skin Exam: Positive: Nl turgor and temperature Neuro Exam: Positive: Strength at 5/5 X4 ext, Cranial Nerves 3-12 NL Psych Exam: Positive: Mental status NL Vital Signs Vital Signs Date Time Temp Pulse Resp B/P (MAP) Pulse Ox O2 Delivery O2 Flow Rate FiO2 05/17/20 17:22 98.1 78 18 120/66 (84) 94 Room Air 05/17/20 17:06 2 Assessment/Plan Patient is 50 years old female with past medical history of hyperlipidemia, peripheral vascular diseases was admitted to the hospital for elective bilateral femoral endarterectomy, [id number] femoral-femoral bypass. Surgical intervention was done today by Dr. Hancock, patient tolerated procedure well. Of note patient has a long history of peripheral vascular diseases due to severe atherosclerosis of [place] arteries with occlusion of the right iliac system and recent stenting of the left iliac system. Patient denied fever, chills, nausea, vomiting, chest pain, palpitations diarrhea or dysuria Problems (1) Peripheral vascular disease Status: Chronic Problem Text: Patient had elective bilateral femoral endarterectomy, [id number] femoral-femoral bypass Vascular surgeon follows her Incentive spirometry We will hold heparin for now (2) Hyperlipidemia Status: Chronic Problem Text: Continue statin Plan / VTE VTE Prophylaxis Ordered?: No VTE Exclusion Pharmacological: Bleeding Risk AMOS MILIAN DO May 17, 2020 17:40
[2020-05-17] MEDS ORDERED: ACETAMINOPHEN TAB 650MG DOSE (2X325MG) PO PRN (17:45)
[2020-05-17] MEDS: ONDANSETRON 4MG/2ML VIAL IV SCH ×2 (19:50→23:00)
[2020-05-17 20:00] VITALS: BP 128/63
[2020-05-17] MEDS: GABAPENTIN 300 MG CAP PO SCH (21:11)
[2020-05-17] MEDS: PERCOCET 5MG/325MG TAB PO PRN (21:12)
[2020-05-17] MEDS: diazePAM 5 MG TAB PO PRN (23:57)
[2020-05-18] MEDS: PERCOCET 5MG/325MG TAB PO PRN ×4 (01:38→18:15)
[2020-05-18] MEDS: ONDANSETRON 4MG/2ML VIAL IV SCH ×2 (05:00→11:05)
[2020-05-18 05:52] LABS: HEMATOCRIT 35.4 % (36.0-47.0); HEMOGLOBIN 11.7 g/dl (12.0-15.5); MEAN CORPUSCULAR HEMOGLOBIN 31.9 pg (27.0-33.0); MEAN CORPUSCULAR HGB CONC 33.1 g/dl (32.0-36.5); MEAN CORPUSCULAR VOLUME 96.5 fl (80.0-96.0); PLATELET COUNT, AUTOMATED 230 10^3/uL (150-450); RED BLOOD COUNT 3.67 10^6/uL (4.00-5.40); WHITE BLOOD COUNT 9.5 10^3/uL (4.0-10.0)
[2020-05-18] MEDS: diazePAM 5 MG TAB PO PRN ×3 (05:57→20:09)
[2020-05-18 06:00] VITALS: BP 103/62
[2020-05-18 06:11] LABS: BLOOD UREA NITROGEN 8 MG/DL (7-18); CALCIUM LEVEL 8.9 MG/DL (8.5-10.1); CARBON DIOXIDE LEVEL 27 MEQ/L (21-32); CHLORIDE LEVEL 104 MEQ/L (98-107); CREATININE FOR GFR 0.79 MG/DL (0.55-1.30); GLOMERULAR FILTRATION RATE > 60.0 (>51); GLUCOSE, FASTING 95 MG/DL (70-100); MAGNESIUM LEVEL 2.1 MG/DL (1.8-2.4); POTASSIUM SERUM 4.3 MEQ/L (3.5-5.1); SODIUM LEVEL 141 MEQ/L (136-145)
--- NOTE | 2020-05-18 07:49 | IPNPDOC ---
Date Seen The patient was seen on 05/18/20. Progress Note Patient seen and examined postoperative day 1 status post bilateral femoral endarterectomy with patch angioplasty and left to right femorofemoral bypass. She's doing very well. Her Tompkins is out, she is able to move around without much pain and has not required much pain medication. Her biggest complaint is that she wants to smoke, and we had another long discussion this morning about smoking cessation. We also again reinforced that the patient is not to have nicotine supplementation. Overall, she says her feet feel so much better and she is able to move her toes easily. She has not yet been out of bed to ambulate, but she is planning to do so after breakfast. We are pleased with her progress. On exam her groin incisions are clean dry and intact. Scant bruising and drainage are noted. Dressings were removed and incisions were clean. No active drainage noted. Dry dressings were replaced. The patient tolerated this without pain. Her feet are warm and well-perfused, pink, less than 1 second capillary refill. Her goal for today will be to get out of bed and ambulate, it is much protein is possible to help with wound healing, and continue general postoperative care. We appreciate the hospitalist assistance managing this patient. She is doing very well and hopefully will be able to discharge tomorrow. VS, I&O, 24H, Robert Vital Signs/I&O Vital Signs Date Time Temp Pulse Resp B/P (MAP) Pulse Ox O2 Delivery O2 Flow Rate FiO2 05/18/20 07:05 18 High Flow Cannula 2.0 05/18/20 06:00 97.1 65 103/62 (76) 96 l I&O- Last 24 Hours up to 6 AM 05/18/20 06:00 Intake Total 3465 ml Output Total 3850 ml Balance -385 ml Laboratory Data 24H LABS Laboratory Tests 2 05/18/20 05:20: Nucleated Red Blood Cells % (auto) 0.0, Anion Gap 10, Glomerular Filtration Rate > 60.0, Calcium Level 8.9, Magnesium Level 2.1 CBC/BMP Laboratory Tests 05/18/20 05:20 JOIE MENDEZ MD May 18, 2020 07:49
[2020-05-18] MEDS: CLOPIDOGREL 75 MG TAB PO SCH (09:36)
[2020-05-18] MEDS: ATORVASTATIN 20 MG TAB PO SCH (09:36)
[2020-05-18] MEDS: GABAPENTIN 300 MG CAP PO SCH ×3 (09:36→20:09)
[2020-05-18] MEDS: PANTOPRAZOLE 40MG TAB (PROTONIX) PO SCH (09:36)
[2020-05-18] MEDS: ASPIRIN 81 MG ENTERIC TAB PO SCH (09:36)
[2020-05-18] MEDS ORDERED: ONDANSETRON 4 MG TAB PO PRN (11:30)
[2020-05-18 14:00] VITALS: BP 105/63
--- NOTE | 2020-05-18 16:11 | IPN ---
DATE: 05/18/2020 SUBJECTIVE: Patient complains of some nicotine withdrawals, such that has been chewing on the straw. She is unable to take any nicotine supplements per strict instructions from her vascular surgeon due to vasospasm risk. At this time she is anxious about going home and says that she has help at home. She complains of some discomfort at the incision site bilaterally with gabe. No purulent drainage. Slight tender. No fevers or chills overnight. OBJECTIVE: PHYSICAL EXAMINATION: VITAL SIGNS: Temperature 97.1, pulse 65, respiratory rate 20, blood pressure 103/62, 96% on 2 liters nasal cannula. GENERAL: Patient is awake, alert, oriented to person, place, and time, answering questions appropriately. No jugular venous distention (JVD), thyromegaly. Anicteric. No pallor. Speaks in full sentences. LUNGS: Clear to auscultation. No wheezes, rales, or rhonchi. HEART: S1, S2, sinus rhythm. ABDOMEN: Soft, nontender, nondistended. Positive bowel sounds. EXTREMITIES: Bilateral inguinal surgical incision clean and dry. Slightly tender. No ecchymosis or bloody drainage. No purulent or erythema. No cyanosis, clubbing, or any pitting edema. LABORATORY DATA: On May 18, white count 9.5, hemoglobin 11, hematocrit 35, platelet count 230. Sodium 141, potassium 4, chloride 104, bicarbonate 27, BUN 8, creatinine 0.79, glucose 95, magnesium 2.1, calcium 8.9. ASSESSMENT AND PLAN: This is a 50-year-old female with history of active tobacco use, peripheral vascular disease, and hypercholesterolemia, left elbow surgery and left knee anterior cruciate ligament repair, admitted due to bilateral lower extremity atherosclerosis of [place] arteries with peripheral vascular disease and claudication. Patient underwent bilateral common femoral angioplasty and a left to right femoral-femoral bypass. Currently on full Plavix anticoagulation. Postoperative wound management, activity, ad deep vein thrombosis (DVT) prophylaxis per vascular surgery. CURRENT ISSUES: 1. Peripheral vascular disease with severe atherosclerosis of [place] vessels and claudication status post stenting of the left iliac system. Currently on incentive spirometry. Smoking cessation counseling has been provided. She is status post bilateral common femoral endarterectomies with patch angioplasty and left to right femoral-femoral bypass. Patient is to hold Plavix from 04/14/2020 to 05/18/2020. Activity level and DVT prophylaxis per Dr. Weiner. She is currently on aspirin 81 daily, Plavix 75 daily. For pain control she is on Neurontin 900 three times a day and Valium 5 mg every 6 as needed as well as Percocet two tablets every 4 hours and oral Dilaudid for breakthrough pain. 2. Tobacco abuse. Cessation counseling has been provided. Patient is not to use a nicotine patch due to vasoconstriction. 3. Dyslipidemia, on chronic Lipitor. 4. Gastrointestinal (GI) prophylaxis, on Protonix. 5. Pain control with Neurontin, Valium, Percocet, and Dilaudid for breakthrough pain. DISPOSITION: Patient is to be discharged in the morning. Followup with Dr. Weiner. Activity level, DVT prophylaxis, and anticoagulation per vascular surgery. [facility]
[2020-05-18 22:00] VITALS: BP 101/61
[2020-05-19] MEDS: PERCOCET 5MG/325MG TAB PO PRN ×2 (01:45→08:35)
[2020-05-19 06:00] VITALS: BP 103/61
[2020-05-19 07:00] LABS: HEMATOCRIT 33.7 % (36.0-47.0); HEMOGLOBIN 11.2 g/dl (12.0-15.5); MEAN CORPUSCULAR HEMOGLOBIN 32.1 pg (27.0-33.0); MEAN CORPUSCULAR HGB CONC 33.2 g/dl (32.0-36.5); MEAN CORPUSCULAR VOLUME 96.6 fl (80.0-96.0); PLATELET COUNT, AUTOMATED 219 10^3/uL (150-450); RED BLOOD COUNT 3.49 10^6/uL (4.00-5.40); WHITE BLOOD COUNT 7.9 10^3/uL (4.0-10.0)
[2020-05-19] MEDS: ATORVASTATIN 20 MG TAB PO SCH (08:34)
[2020-05-19] MEDS: PANTOPRAZOLE 40MG TAB (PROTONIX) PO SCH (08:35)
[2020-05-19] MEDS: GABAPENTIN 300 MG CAP PO SCH (08:35)
[2020-05-19] MEDS: ASPIRIN 81 MG ENTERIC TAB PO SCH (08:35)
[2020-05-19] MEDS: CLOPIDOGREL 75 MG TAB PO SCH (08:35)
[2020-05-19] MEDS ORDERED: DILA2TAB6 PO (10:46)
[2020-05-19] MEDS ORDERED: PERCOCET PO (10:46)
[2020-05-19] MEDS: diazePAM 5 MG TAB PO PRN (10:49)
--- NOTE | 2020-05-19 12:04 | IPNPDOC ---
Date Seen The patient was seen on 05/19/20. Progress Note Patient seen and examined postoperative day 2 status post bilateral femoral endarterectomy with patch angioplasty and left to right femorofemoral bypass. She's doing very well. She has ambulated without difficulty, and is able to move around without much pain and has not required much pain medication. She says her legs feel much better and walking is no longer painful. We had another long disc ussion this morning about smoking cessation. We also again reinforced that the patient is not to have nicotine supplementation. She is willing to try wellbutrin for smoking cessation. We are pleased with her progress and her willingness to discuss smoking cessation today. She has been "chewing on all of my straws" and says that has helped a lot. On exam her groin incisions are clean dry and intact. Some suprapubic bruising noted, but dressings are dry with no drainage. Dressings were removed and incisions were clean. No active drainage noted. Dry dressings were replaced after thoroughly cleaning incisions. The patient tolerated this without pain. Her feet are warm and well-perfused, pink, less than 1 second capillary refill. Doppler signals present BLE DP/PT. Ok for discharge home from a vascular standpoint. F/u 1 week to check incisions. Rx wellbutrin- pt willing to try this for smoking cessation. D/c nicotine supplementation. No smoking at home. Incisions: Shower daily with dressings off. No tub bath, swimming, or hot tubs until incisions are completely healed- 2 weeks. After shower, pat incisions dry with clean towel. Cover with dry gauze and paper tape. Wear loose cotton clothing. Ok to ambulate and climb stairs. No lifting >5-10lbs and no strenuous exercise x 2weeks. No driving if taking narcotic pain medication. We appreciate the hospitalist's excellent management of this patient. We appreciate the opportunity to participate in the care of this patient. VS, I&O, 24H, Fishbone Vital Signs/I&O Vital Signs Date Time Temp Pulse Resp B/P (MAP) Pulse Ox O2 Delivery O2 Flow Rate FiO2 05/19/20 09:05 18 Room Air 05/19/20 06:00 99.1 88 103/61 (75) 92 05/18/20 07:05 2.0 I&O- Last 24 Hours up to 6 AM 05/19/20 05:59 Intake Total 2750 ml Output Total 3100 ml Balance -350 ml Laboratory Data 24H LABS Laboratory Tests 2 05/19/20 06:11: Nucleated Red Blood Cells % (auto) 0.0 CBC/BMP Laboratory Tests 05/19/20 06:11 JOIE MENDEZ MD May 19, 2020 12:04
[2020-05-19] MEDS ORDERED: WELL100T2 PO (12:58)
== END 2020-05-19 13:18 | disposition home or self-care (01) | DRG 169 ==
LOC: M OR 09:42 → M MSPAV 19:00
PROVIDERS: ADMIT Surgery Vascular Surgery; ATTEND Surgery Vascular Surgery
PROC: 04CK0ZZ Extirpation of Matter from Right Femoral Artery, Open Approach (ICD-10-PCS; 2020-05-17)
PROC: 041J0JJ Bypass Left External Iliac Artery to Left Femoral Artery with Synthetic Substitute, Open Approach (ICD-10-PCS; principal; 2020-05-17 11:15)
PROC: 04CL0ZZ Extirpation of Matter from Left Femoral Artery, Open Approach (ICD-10-PCS; 2020-05-17 11:15)
DX: I70.323 Atherosclerosis of unspecified type of bypass graft(s) of the extremities with rest pain, bilateral legs (principal); E78.5 Hyperlipidemia, unspecified; Z79.82 Long term (current) use of aspirin; Z79.899 Other long term (current) drug therapy; Z88.5 Allergy status to narcotic agent; F17.200 Nicotine dependence, unspecified, uncomplicated

== ENCOUNTER → 2020-06-25 | Outpatient (CLI) | payer OTHER ==
[~2020-06-25] MED LIST changes: +DILA2TAB6 PO; +PANT40TA29 PO; -PANT40TA3 PO; +PERCOCET PO; +WELL100T2 PO
--- NOTE | 2020-07-05 13:32 | REP ---
BILATERAL LOWER EXTREMITY DUPLEX ARTERIAL ULTRASOUND HISTORY: Atherosclerosis. On 05/17/2020, the patient underwent right and left common femoral artery endarterectomy and left to right fem-fem bypass graft procedure. FINDINGS: Ankle brachial indices are measured at 1.0 bilaterally in the lower extremities. An irregularly shaped anechoic area is seen anterior to the left common femoral artery, which may be related to resolving hematoma. This measures 3.7 x 1.2 x 3.0 cm. Monophasic waveforms are noted throughout both lower extremities with moderate plaquing bilaterally. The fem-fem crossover graft is patent. Peak systolic velocity at the left anastomosis is 251 cm/s. Proximal left graft limb peak systolic velocity is 89 cm/s. Mid graft peak systolic velocity is 109 cm/s. Proximal right limb graft velocity 129 cm/s and anastomotic. Right side graft velocity 102 cm/s. Peak systolic flow velocity in the distal aorta is 75 cm/s. VELOCITY CHART BILATERAL LOWER EXTREMITIES RIGHT (cm/s) LEFT (cm/s) MOUSTAPHA 111 88 EIA 63 240 PARTITION ASSEMBLER 147 139 Profunda 104 130 Proximal SFA 98 103 Mid SFA 104 118 Distal SFA 78 54 Popliteal 60 46 Proximal KELSEY 46 33 Tibioperoneal trunk 61 49 Proximal DISTRICT CLAIMS MANAGER 36 42 Distal DISTRICT CLAIMS MANAGER 53 15 Distal KELSEY 81 36 MTDD
== END ==
LOC: M RAD 08:35
PROVIDERS: ATTEND Physician Assistant
DX: I70.223 Atherosclerosis of native arteries of extremities with rest pain, bilateral legs (principal); Z95.828 Presence of other vascular implants and grafts; F17.210 Nicotine dependence, cigarettes, uncomplicated

== ENCOUNTER → 2020-11-13 | Outpatient (CLI) | payer OTHER ==
[~2020-11-13] MED LIST changes: +GABA-282 PO; -GABA-843 PO
--- NOTE | 2020-11-15 00:16 | ECWPNPC ---
PATIENT NAME: NIXON WHALEN : 1970 GENDER: FEMALE VISIT DATE: 11/13/2020 DISCHARGE DATE: 11/13/20 1018 VISIT LOCKED DATE TIME: PHYSICIAN: BLESSING DONOVAN PHYSICIAN PAGER NO: ACTIVE RESOURCE: BLESSING DONOVAN REASON FOR APPOINTMENT 1. SEVERE HERPETIC NEURALGIA PAIN RIGHT HISTORY OF PRESENT ILLNESS DEPRESSION SCREENING: PHQ-2 (2015 EDITION) LITTLE INTEREST OR PLEASURE IN DOING THINGS?NOT AT ALL FEELING DOWN, DEPRESSED, OR HOPELESS?NOT AT ALL TOTAL SCORE0 50-YEAR-OLD FEMALE IN FOR INITIAL PAIN CONSULT REGARDING POSTHERPETIC NEURALGIA. WHEN ASKED PATIENT ADMITS TO A SHINGLES OUTBREAK IN AND SHE HAS EXPERIENCED PAIN SINCE THAT TIME. SHE STATES HER PCP HAS TRIED HER ON OXYCODONE AND SHE IS CURRENTLY TAKING GABAPENTIN AND AMITRIPTYLINE HOWEVER THEY ONLY SEEM TO DULL THE PAIN. SHE RATES HER PAIN CURRENTLY AT A 5 OUT OF 10 AND DESCRIBES IT BURNING, CONTINUOUS, SHARP, STABBING, TENDER, THROBBING, AND SORE. GENERAL: - - - - - -. FALL RISK SCREENING: SCREENING :NO FALLS REPORTED IN THE LAST YEAR FRACTURED RIBS ON LEFT SIDE IN summer. PATIENT DID NOT SEEK MEDICAL TREATMENT IMMEDIATELY AFTER THE FALL. PAIN SCREENING: PATIENT HAS A COMPLAINT OF ACUTE OR CHRONIC PAIN :YES LOCATION OF PAIN:RIGHT SHOULDER, BACK INTENSITY OF PAIN (SCALE OF 1 TO 10):5 AVERAGE WITH MEDICATION 4. WHAT DOES YOUR PAIN FEEL LIKE:BURNING, CONTINOUS, SHARP, STABBING, TENDER, THROBBING, SORE, SHOOTING PATIENT STATES THE PAIN IS LIKE AN "ITCH I CANNOT SCRATCH." DURATION:CONTINOUS, CONSTANT, AWAKENS FROM SLEEP PAIN IS INCREASED BY: NONE PAIN IS DECREASED BY:USE OF PAIN MEDICATIONS GABAPENTIN AND OXYCODONE HELPS TO SUBSIDE THE PAIN. TREATMENT/MEDICATIONS USED TO MANAGE PAIN:OTC PAIN RELIEVERS, NSAIDS, TOPICAL CORTICOSTEROIDS, OPIOIDS LIDOCAINE PATCHES LEVEL OF RELIEF FROM PAIN TREATMENTS IN THE PAST:50% NURSING NOTE: - - - - - -. PAIN CENTER INTAKE QUESTIONS: DO YOU HAVE A HISTORY OF MRSA? :NO DO YOU TAKE A BLOOD THINNERS? :YES ASPIRIN 81MG DAILY AND CLOPIDOGREL 75 MG ONE TABLET ONCE A DAY. DO YOU HAVE ANY BLEEDING DISORDERS? :NO ANY NEW NUMBNESS OR WEAKNESS IN YOUR LEGS OR ARMS? :YES LEFT THIGH IS NUMB POST SURGERY ANY PACEMAKER,DEFIBRILLATOR, OR DORSAL COLUMN STIMULATOR? :NO DO YOU HAVE ANY RASHES OR OPEN SORES? :NO ARE YOU ALLERGIC TO IV DYE? :NO ARE YOU DIABETIC? :NO ANY NEW PROBLEMS WITH YOUR MEDICATIONS? :NO HAVE YOU RECEIVED A VACCINE IN THE PAST 30 DAYS? :NO DO YOU PLAN TO RECEIVE A VACCINE IN THE NEXT 21 DAYS? :NO DO YOU NEED ANY PRESCRIPTION? :NO DO YOU TAKE ANY IMMUNOSUPPRESSIVE MEDICATIONS? :NO IS THERE A CHANCE YOU COULD BE ? :NO ARE YOU BREAST FEEDING? :NO CURRENT MEDICATIONS TAKING ASPIRIN 81 MG TABLET CHEWABLE 1 TABLET ORALLY ONCE A DAY TAKING ATORVASTATIN CALCIUM 80 MG TABLET 1 TABLET ORALLY ONCE A DAY TAKING CLOPIDOGREL BISULFATE 75 MG TABLET 1 TABLET ORALLY ONCE A DAY TAKING LIDODERM 5 % PATCH 1 - 2 PATCHS REMOVE AFTER 12 HOURS EXTERNALLY ONCE A DAY TO AREA OF PAIN ON CHEST AND BACK FRO POST HERPETIC NEURALGIA TAKING AMITRIPTYLINE HCL 50 MG TABLET 1 TABLET AT BEDTIME ORALLY ONCE A DAY TAKING ERGOCALCIFEROL 88053 IU TABLET 1 TABLET ORALLY WEEKLY TAKING PANTOPRAZOLE SODIUM 40 MG TABLET DELAYED RELEASE 1 TABLET ORALLY ONCE A DAY TAKING GABAPENTIN 600 MG TABLET 2 ORALLY THREE TIMES A DAY TAKING OXYCODONE-ACETAMINOPHEN 5-325 MG TABLET 1 TABLET NEEDED ORALLY AT BEDTIME NEEDED FOR SEVERE PAIN NEEDED FOR PAIN MDD = 1 TAKING REPATHA 140MG/ML INJECTION INTRAMUSCULARLY EVERY OTHER WEEK MEDICATION LIST REVIEWED AND RECONCILED WITH THE PATIENT PAST MEDICAL HISTORY HYPERLIPIDEMIA - LDL = 245 VITAMIN D DEFICIENCY ECHO - NORMAL 09/2019 CAROTID US 09/2019 - NO HEMODYNAMICALLY SIGNIFICANT NARROWING RENAL US - NORMAL OTHER THAN DECREASED AORTIC VELOCITIES - CTA OR MRA RECOMMENDED TO EVALUATE AORTA 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 S/PLEFT EXTERNAL ILIAC AND COMMON ILIAC BALLOON EXPANDABLE STENTS X 4. SCHEDULED FOR BL COMMON FEMORAL ENDARTERECTOMIES WITH PATCH ANGIOPLASTY AND LEFT TO RIGHT FEMPOP BYPASS 03/2020 - STRESS SPECT MYOCARDIAL PERFUSION STUDY - LOW RISK SMOKER LUMBAR DDD AND SPINA BIFIDA PER L-S SPINE - FOLLOWING WITH [facility] SHINDAVID ALLERGIES MORPHINE SULFATE SURGICAL HISTORY KNEE ARTHROSCOPY-LEFT 1992 KNEE SURGERYLEFT 1992 LEFT EXTERNAL ILIAC AND COMMON ILIAC BALLOON EXPNDABLE STENTS X 4 12/2019 FAMILY HISTORY NO H/O CAD/CVD,/DMNO H/O COLON CA/BREAST CA/OVARIAN OR UTERINE CA.NO H/O DEPRESSION/ANXIETY. SOCIAL HISTORY GENERAL: TOBACCO USE ARE YOU A:CURRENT SMOKER HOW OFTEN DO YOU SMOKE CIGARETTES?EVERY DAY HOW SOON AFTER YOU WAKE UP DO YOU SMOKE YOUR FIRST CIGARETTE?WITHIN 5 MIN HOW MANY CIGARETTES A DAY DO YOU SMOKE?11-20 ARE YOU INTERESTED IN QUITTING?NOT READY TO QUIT PATIENT COUNSELED ON THE DANGERS OF TOBACCO USE AND URGED TO QUIT:08/24/2019 COUNSELED THE PATIENT ON SMOKING EFFECTS, EDUCATION [id number]/23/2019 LATEX QUESTIONNAIRE LATEX ALLERGY : HAVE YOU EVER DEVELOPED ANY TYPE OF REACTION AFTER HANDLING LATEX PRODUCTS SUCH RUBBER GLOVES, CONDOMS, DIAPHRAGMS, BALLOONS, SOCKS, OR UNDERWEAR?NO LATEX ALLERGY : HAVE YOU EVER DEVELOPED ANY TYPE OF REACTION DURING OR AFTER DENTAL APPOINTMENT, VAGINAL/RECTAL EXAMINATION, SURGICAL PROCEDURE, OR ANY OTHER EXPOSURE?NO DATE ASKED : 08/24/2019 LATEX RISK : HAVE YOU EVER HAD ANY DIFFICULTY BREATHING OR HIVES AFTER EATING OR HANDLING ANY FRUITS, OR VEGETABLES; SUCH KIWI, BANANAS, STONE FRUITS, OR CHESTNUTSNO LATEX RISK : DO YOU HAVE A PREVIOUS PERSONAL HISTORY OF MORE THAN NINE SURGERIES, SPINA BIFIDA, OR REPEATED CATHERIZATIONS? NO LATEX RISK : ARE YOU FREQUENTLY EXPOSED TO LATEX PRODUCTS IN YOUR OCCUPATION?NO CAFFEINE CAFFEINE USE?YES 2 CUPS DAILY SEXUAL HX HAD SEX IN THE LAST 12 MONTHS (VAGINAL, ORAL, OR ANAL)?NO LMP:2009 HAVE YOU EVER HAD AN STD?NO LANGUAGE LANGUAGES SPOKEN:PERSIAN LEARNING BARRIERS / SPECIAL NEEDS CHANGE FROM LAST VISIT?NO BARRIERS TO LEARNING?NO HEARING IMPAIRED?NO VISION IMPAIRED?NO COGNITIVELY IMPAIRED?NO READINESS TO LEARN?YES LEARNING PREFERENCES?NO LEARNING CAPABILITIES PRESENT?YES EMOTIONAL BARRIERS?NO SPECIAL DEVICES?NO FREIGHT SERVICE INSPECTOR NEEDED?NO DOMESTIC VIOLENCE STATUS:SINGLE DO YOU FEEL SAFE IN YOUR ENVIRONMENT?YES 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 DIET: REGULAR. EXERCISE: NO REGULAR EXERCISE. MARITAL STATUS: SINGLE. OTHERS AT HOME: CHILD. PAIN CLINIC PFS, CLERGY, PUBLIC HEALTH REFERRALS HAS THE PATIENT BEEN EDUCATED REGARDING HIS/HER PLAN OF CARE?YES HAS THE PATIENT BEEN EDUCATED REGARDING PAIN, THE RISK FOR PAIN, THE IMPORTANCE OF EFFECTIVE PAIN MANAGEMENT, AND THE PAIN ASSESSMENT PROCESS?YES ADVANCE DIRECTIVE ADVANCE DIRECTIVE DISCUSSED WITH PATIENT:NO NO ADVANCED CARE DIRECTIVES. PATIENT OFFERED INFORMATION AND REFUSED AT THIS TIME. 11/13/2020 [facility] HOSPITALIZATION/MAJOR DIAGNOSTIC PROCEDURE NO HOSPITALIZATION HISTORY. REVIEW OF SYSTEMS CONSTITUTIONAL: ANY RECENT FEVER NO . CHILLS NO . WEIGHT CHANGE OF UNKNOWN REASONS NO . MUSCULOSKELETAL: ANY UNUSUAL JOINT PAIN OR SWELLING NOT MENTIONED NO . SYSTEMIC LUPUS NO . ANY NEUROMUSCULAR DISORDER NOT MENTIONED NO . LYME DISEASE NO . GASTROENTEROLOGY: ANY NEW CHANGE IN BOWEL CONTROL? NO . HISTORY OF LIVER DISORDER NOT MENTIONED NO . HISTORY OF UNUSUAL ABDOMINAL PAIN OR CRAMPING NOT MENTIONED NO . NO CONSTIPATION. GENITOURINARY: ANY NEW CHANGE IN BLADDER CONTROL? NO . ANY RENAL/KIDNEY CONDITON NOT MENTIONED NO . NEUROLOGY: HISTORY OF TBI NOT MENTIONED NO . OTHER NEW NUMBNESS OR PAIN PATTERNS NOT MENTIONED NO . NEW ONSET DIZZINESS OR NEUROLOGICAL CHANGES NOT MENTIONED NO . HISTORY OF SEVERE HEADACHES NOT MENTIONED NO . HISTORY OF STROKE OR NEUROLOGICAL DISORDER NOT MENTIONED NO . CARDIOLOGY: HEART SURGERY NO . CONGESTIVE HEART FAILURE/FLUID OVERLOAD NOT MENTIONED NO . HISTORY OF CHEST PAIN,IRREGULAR HEART BEAT NOT MENTIONED NO . RESPIRATORY: SHORTNESS OF BREATH ON EXERTION, WHEEZES, UNUSUAL COUGH NOT MENTIONED NO . ENDOCRINOLOGY: ADRENAL GLAND OR THYROID DISORDERS NOT MENTIONED NO . UNUSUAL URINATION, DIZZINESS OR LETHARGY NOT MENTIONED NO . VITAL SIGNS WT 177.6 LBS, HT 68", BMI 27.00 INDEX, HR 101 /MIN, RR 20 /MIN, TEMP 97.5 F, OXYGEN SAT % 99%, SAFE IN ENV? (Y/N) YES, REVIEWED BY: SIDDHARTHA RAMIREZ MA. EXAMINATION GENERAL EXAMINATION: GENERALNO ACUTE DISTRESS, WELL NOURISHED AND HYDRATED. PSYCHAPPROPRIATE MOOD AND AFFECT . LUNGS:CLEAR TO AUSCULTATION BILATERALLY, NO WHEEZES, RHONCHI, RALES. HEART:NO MURMURS, REGULAR RATE AND RHYTHM. 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 PATIENT HAS TRIED PERCOCET IN THE PAST TO NO AVAIL. GIVEN FDA GUIDELINES REGARDING THE USE OF NUCYNTA FOR NEUROPATHIC TYPE PAIN RECOMMEND 50 MG TWICE A DAY. FURTHER RECOMMEND INCREASING AMITRIPTYLINE TO 75 MG, AND CONTINUING WITH CURRENT DOSAGE OF GABAPENTIN. PATIENT HAS EXPRESSED UNDERSTANDING OF AND WAS IN AGREEMENT WITH TREATMENT PLAN. GIVEN TIME TO ASK QUESTIONS AND EXPRESS CONCERNS. , ISTOP REGISTRY REVIEWED AND DEMONSTRATES COMPLLIANCE. (REF # [id number] ). CLINICAL NOTES: [facility] SITE NOT FUNCTIONING, PT WAS INFORMED ABOUT NUCYNTA AND MEDICATIONS BY Elise LECHUGA RN BSN. . PROCEDURE CODES FA211 ESTABILISHED PATIENT [facility] CHARGE DISPOSITION & COMMUNICATION FOLLOW UP 2 MONTHS (REASON: POSTHERPETIC NEURALGIA) ELECTRONICALLY SIGNED BY ANYA SALAS ON 11/14/2020 AT 10:18 AM EST DISCLAIMER : THIS IS A VISIT SUMMARY EXTRACTED FROM THE [employer] CHART. IT IS NOT A COPY OF THE [employer] PROGRESS NOTE. MTDD
== END ==
LOC: M PAIN 08:30
PROVIDERS: ATTEND Family Medicine
DX: B02.29 Other postherpetic nervous system involvement (principal); F17.210 Nicotine dependence, cigarettes, uncomplicated; Z88.5 Allergy status to narcotic agent; Z79.82 Long term (current) use of aspirin; Z79.899 Other long term (current) drug therapy

== ENCOUNTER → 2021-01-11 | Outpatient (CLI) | payer OTHER ==
--- NOTE | 2021-01-15 06:36 | ECWPNPC ---
PATIENT NAME: NIXON WHALEN : 1970 GENDER: FEMALE VISIT DATE: 01/11/2021 DISCHARGE DATE: 01/11/21 0950 VISIT LOCKED DATE TIME: PHYSICIAN: BLESSING DONOVAN PHYSICIAN PAGER NO: ACTIVE RESOURCE: BLESSING DONOVAN REASON FOR APPOINTMENT 1. 2 MONTH POSTHERPETIC NEURALGIA HISTORY OF PRESENT ILLNESS GENERAL: 50-YEAR-OLD FEMALE IN FOR CHRONIC PAIN FOLLOW-UP. AT LAST CLINIC VISIT PATIENT WAS STARTED ON TRAMADOL AND SHE ADMITS TODAY THAT THIS HAS BEEN INEFFECTIVE IN MANAGING HER PAIN SYMPTOMS. SHE RATES HER PAIN CURRENTLY AT A 5 OUT OF 10 AND DESCRIBES IT BURNING. FALL RISK SCREENING: SCREENING : NO FALLS REPORTED IN THE LAST YEAR , : NO FALLS REPORTED IN THE LAST YEAR. PAIN SCREENING: PATIENT HAS A COMPLAINT OF ACUTE OR CHRONIC PAIN :YES LOCATION OF PAIN:OTHER: WHOLE BACK AND BREAST INTENSITY OF PAIN (SCALE OF 1 TO 10):5 WHAT DOES YOUR PAIN FEEL LIKE:BURNING, OTHER DURATION:CONTINOUS, CONSTANT, ALL DAY PAIN IS INCREASED BY:OTHERS COMES WHEN IT WANT TO PAIN IS DECREASED BY:USE OF PAIN MEDICATIONS NURSING NOTE: - -. PAIN CENTER INTAKE QUESTIONS: DO YOU HAVE A HISTORY OF MRSA? :NO DO YOU TAKE A BLOOD THINNERS? :YES PLAVIX ( CLOPIDOGREL ) DO YOU HAVE ANY BLEEDING DISORDERS? :NO ANY NEW NUMBNESS OR WEAKNESS IN YOUR LEGS OR ARMS? :NO ANY PACEMAKER,DEFIBRILLATOR, OR DORSAL COLUMN STIMULATOR? :NO DO YOU HAVE ANY RASHES OR OPEN SORES? :YES BACK RASH ARE YOU ALLERGIC TO IV DYE? :NO ARE YOU DIABETIC? :NO ANY NEW PROBLEMS WITH YOUR MEDICATIONS? :YES TRAMADOL ISNT WORKING, WANT TO KNOW IF THE PATCHES IS FOR PAIN HAVE YOU RECEIVED A VACCINE IN THE PAST 30 DAYS? :NO DO YOU PLAN TO RECEIVE A VACCINE IN THE NEXT 21 DAYS? :NO DO YOU NEED ANY PRESCRIPTION? :NO DO YOU TAKE ANY IMMUNOSUPPRESSIVE MEDICATIONS? :NO DO YOU HAVE ANY KIDNEY OR LIVER DISEASE? :NO IS THERE A CHANCE YOU COULD BE ? :NO ARE YOU BREAST FEEDING? :NO CURRENT MEDICATIONS TAKING ASPIRIN 81 MG TABLET CHEWABLE 1 TABLET ORALLY ONCE A DAY TAKING CLOPIDOGREL BISULFATE 75 MG TABLET 1 TABLET ORALLY ONCE A DAY TAKING LIDODERM 5 % PATCH 1 - 2 PATCHS REMOVE AFTER 12 HOURS EXTERNALLY ONCE A DAY TO AREA OF PAIN ON CHEST AND BACK FRO POST HERPETIC NEURALGIA TAKING ERGOCALCIFEROL 70628 IU TABLET 1 TABLET ORALLY WEEKLY TAKING PANTOPRAZOLE SODIUM 40 MG TABLET DELAYED RELEASE 1 TABLET ORALLY ONCE A DAY TAKING GABAPENTIN 600 MG TABLET 2 ORALLY THREE TIMES A DAY TAKING REPATHA 140MG/ML INJECTION INTRAMUSCULARLY EVERY OTHER WEEK TAKING AMITRIPTYLINE HCL 75 MG TABLET 1 TABLET AT BEDTIME ORALLY ONCE A DAY TAKING TRAMADOL HCL 50 MG TABLET 1 TABLET NEEDED ORALLY TWICE DAILY NEEDED TAKING ATORVASTATIN CALCIUM 80 MG TABLET 1 TABLET ORALLY ONCE A DAY NOT-TAKING BUTRANS 5 MCG/HR PATCH WEEKLY 1 PATCH TO SKIN TRANSDERMAL WEEKLY MEDICATION LIST REVIEWED AND RECONCILED WITH THE PATIENT PAST MEDICAL HISTORY HYPERLIPIDEMIA - LDL = 245 VITAMIN D DEFICIENCY ECHO - NORMAL 09/2019 CAROTID US 09/2019 - NO HEMODYNAMICALLY SIGNIFICANT NARROWING RENAL US - NORMAL OTHER THAN DECREASED AORTIC VELOCITIES - CTA OR MRA RECOMMENDED TO EVALUATE AORTA 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 S/PLEFT EXTERNAL ILIAC AND COMMON ILIAC BALLOON EXPANDABLE STENTS X 4. SCHEDULED FOR BL COMMON FEMORAL ENDARTERECTOMIES WITH PATCH ANGIOPLASTY AND LEFT TO RIGHT FEMPOP BYPASS 03/2020 - STRESS SPECT MYOCARDIAL PERFUSION STUDY - LOW RISK SMOKER LUMBAR DDD AND SPINA BIFIDA PER L-S SPINE - FOLLOWING WITH VIRIDIANA STAHL ALLERGIES MORPHINE SULFATE SOCIAL HISTORY GENERAL: TOBACCO USE ARE YOU A:CURRENT SMOKER ARE YOU INTERESTED IN QUITTING?NOT READY TO QUIT COUNSELED THE PATIENT ON SMOKING EFFECTS, EDUCATION [id number]/12/2021 HOW MANY CIGARETTES A DAY DO YOU SMOKE?11-20 HOW SOON AFTER YOU WAKE UP DO YOU SMOKE YOUR FIRST CIGARETTE?WITHIN 5 MIN HOW OFTEN DO YOU SMOKE CIGARETTES?EVERY DAY PATIENT COUNSELED ON THE DANGERS OF TOBACCO USE AND URGED TO QUIT:08/24/2019 LATEX QUESTIONNAIRE LATEX ALLERGY : HAVE YOU EVER DEVELOPED ANY TYPE OF REACTION AFTER HANDLING LATEX PRODUCTS SUCH RUBBER GLOVES, CONDOMS, DIAPHRAGMS, BALLOONS, SOCKS, OR UNDERWEAR?NO LATEX ALLERGY : HAVE YOU EVER DEVELOPED ANY TYPE OF REACTION DURING OR AFTER DENTAL APPOINTMENT, VAGINAL/RECTAL EXAMINATION, SURGICAL PROCEDURE, OR ANY OTHER EXPOSURE?NO LATEX RISK : HAVE YOU EVER HAD ANY DIFFICULTY BREATHING OR HIVES AFTER EATING OR HANDLING ANY FRUITS, OR VEGETABLES; SUCH KIWI, BANANAS, STONE FRUITS, OR CHESTNUTSNO LATEX RISK : DO YOU HAVE A PREVIOUS PERSONAL HISTORY OF MORE THAN NINE SURGERIES, SPINA BIFIDA, OR REPEATED CATHERIZATIONS? NO LATEX RISK : ARE YOU FREQUENTLY EXPOSED TO LATEX PRODUCTS IN YOUR OCCUPATION?NO DATE ASKED : 01/11/2021 ALCOHOL USE: YES. 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 DIET: REGULAR. EXERCISE: NO REGULAR EXERCISE. MARITAL STATUS: SINGLE. OTHERS AT HOME: CHILD. - HAS THE PATIENT BEEN EDUCATED REGARDING HIS/HER PLAN OF CARE?YES HAS THE PATIENT BEEN EDUCATED REGARDING PAIN, THE RISK FOR PAIN, THE IMPORTANCE OF EFFECTIVE PAIN MANAGEMENT, AND THE PAIN ASSESSMENT PROCESS?YES ADVANCE DIRECTIVE ADVANCE DIRECTIVE DISCUSSED WITH PATIENT:NO NO ADVANCED CARE DIRECTIVES. PATIENT OFFERED INFORMATION AND REFUSED AT THIS TIME. 11/13/2020 J.H REVIEW OF SYSTEMS CONSTITUTIONAL: ANY RECENT FEVER NO . CHILLS NO . WEIGHT CHANGE OF UNKNOWN REASONS NO . GASTROENTEROLOGY: NEW UNEXPLAINABLE CHANGES IN BOWEL CONTROL NO . CONSTIPATION NO . GENITOURINARY: ANY NEW CHANGE IN BLADDER CONTROL? NO . NEUROLOGY: NEW ONSET DIZZINESS OR NEUROLOGICAL CHANGES NOT MENTIONED NO . NEW NUMBNESS OR PAIN PATTERNS NOT MENTIONED AND PERTINENT TO TODAY'S VISIT NO . CARDIOLOGY: NEW CHEST PRESSURE NO . PATIENT DENIES NO . RESPIRATORY: UNEXPLAINABLE COUGH NO . NEW SHORTNESS OF BREATH NO . VITAL SIGNS WT 177.2 LBS, HT 68", BMI 26.94 INDEX, BP 119/76 MM HG, HR 103 /MIN, RR 18 /MIN, TEMP 97.0 F, OXYGEN SAT % 98%, SAFE IN ENV? (Y/N) YES, NA INITIALS AW 0906T.LALO ARNOLD. EXAMINATION GENERAL EXAMINATION: GENERALNO ACUTE DISTRESS, WELL NOURISHED AND HYDRATED. PSYCHAPPROPRIATE MOOD AND AFFECT . LUNGS:CLEAR TO AUSCULTATION BILATERALLY, NO WHEEZES, RHONCHI, RALES. HEART:NO MURMURS, REGULAR RATE AND RHYTHM. 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 GIVEN PRESENTING SYMPTOMS RECOMMENDED STOPPING TRAMADOL AND STARTING BUTRANS PATCH WITH FOLLOW-UP IN 2 MONTHS. PATIENT HAS EXPRESSED UNDERSTANDING OF AND WAS IN AGREEMENT WITH TREATMENT PLAN. GIVEN TIME TO ASK QUESTIONS AND EXPRESS CONCERNS. , ISTOP REGISTRY REVIEWED AND DEMONSTRATES COMPLLIANCE. (REF # [id number] ) BRINGS IN MEDICATIONS WHICH IS APPROPRIATE FOR WHAT WAS DISPENSED. RECENT URINE TOXICOLOGY REVIEWED. NO UNAUTHORIZED MEDICATIONS. NO ILLICIT SUBSTANCES AND PRESCRIBED MEDICATIONS WERE PRESENT. OTHERS NOTES: BUPRENORPHINE TRANSDERMAL PATCH MATERIAL WAS PRINTED. PROCEDURE CODES FA211 ESTABILISHED PATIENT [facility] CHARGE DISPOSITION & COMMUNICATION FOLLOW UP 2 MONTHS (REASON: NEW MEDICATION) ELECTRONICALLY SIGNED BY ANYA SALAS ON 01/14/2021 AT 08:17 AM EDT DISCLAIMER : THIS IS A VISIT SUMMARY EXTRACTED FROM THE [email or web address] CHART. IT IS NOT A COPY OF THE [email or web address] PROGRESS NOTE. CORY
== END ==
LOC: M PAIN 09:00
PROVIDERS: ATTEND Family Medicine
DX: B02.29 Other postherpetic nervous system involvement (principal); G89.29 Other chronic pain; F17.210 Nicotine dependence, cigarettes, uncomplicated; Z88.5 Allergy status to narcotic agent; Z79.82 Long term (current) use of aspirin; Z79.899 Other long term (current) drug therapy

== ENCOUNTER → 2021-03-13 | Outpatient (CLI) | payer OTHER ==
--- NOTE | 2021-03-15 04:58 | ECWPNPC ---
PATIENT NAME: NIXON WHALEN : 1970 GENDER: FEMALE VISIT DATE: 03/13/2021 DISCHARGE DATE: 03/13/21920 VISIT LOCKED DATE TIME: PHYSICIAN: BLESSING DONOVAN PHYSICIAN PAGER NO: ACTIVE RESOURCE: BLESSING DONOVAN REASON FOR APPOINTMENT 1. NEW MEDICATION HISTORY OF PRESENT ILLNESS GENERAL: -50-YEAR-OLD FEMALE IN FOR CHRONIC PAIN FOLLOW-UP. PATIENT WAS STARTED ON BUTRANS PATCH AND SHE ADMITS THAT THESE HAVE BEEN BENEFICIAL HOWEVER THEY DO NOT COMPLETELY COVER HER PAIN. SHE RATES HER PAIN CURRENTLY AT A 5 OUT OF 10 AND DESCRIBES IT BURNING, STABBING, AND ITCHING. FALL RISK SCREENING: SCREENING : NO FALLS REPORTED IN THE LAST YEAR. PAIN SCREENING: PATIENT HAS A COMPLAINT OF ACUTE OR CHRONIC PAIN :YES LOCATION OF PAIN: RIGHT BREAST RADIATING TO RIGHT UPPER BACK INTENSITY OF PAIN (SCALE OF 1 TO 10):5 WHAT DOES YOUR PAIN FEEL LIKE:BURNING, STABBING ITCHING DURATION:CONTINOUS, CONSTANT PAIN IS INCREASED BY: NIGHTIME PAIN IS DECREASED BY:USE OF PAIN MEDICATIONS NURSING NOTE: -. PAIN CENTER INTAKE QUESTIONS: DO YOU HAVE A HISTORY OF MRSA? :NO DO YOU TAKE A BLOOD THINNERS? :YES PLAVIX DO YOU HAVE ANY BLEEDING DISORDERS? :NO ANY NEW NUMBNESS OR WEAKNESS IN YOUR LEGS OR ARMS? :NO ANY PACEMAKER,DEFIBRILLATOR, OR DORSAL COLUMN STIMULATOR? :NO DO YOU HAVE ANY RASHES OR OPEN SORES? :NO ARE YOU ALLERGIC TO IV DYE? :NO ARE YOU DIABETIC? :NO ANY NEW PROBLEMS WITH YOUR MEDICATIONS? :NO HAVE YOU RECEIVED A VACCINE IN THE PAST 30 DAYS? :NO DO YOU PLAN TO RECEIVE A VACCINE IN THE NEXT 21 DAYS? :NO DO YOU NEED ANY PRESCRIPTION? :YES KYLEIGH PATCH, PT ASKING FOR OXY DO YOU TAKE ANY IMMUNOSUPPRESSIVE MEDICATIONS? :NO DO YOU HAVE ANY KIDNEY OR LIVER DISEASE? :NO IS THERE A CHANCE YOU COULD BE ? :NO ARE YOU BREAST FEEDING? :NO CURRENT MEDICATIONS TAKING ASPIRIN 81 MG TABLET CHEWABLE 1 TABLET ORALLY ONCE A DAY TAKING CLOPIDOGREL BISULFATE 75 MG TABLET 1 TABLET ORALLY ONCE A DAY TAKING LIDODERM 5 % PATCH 1 - 2 PATCHS REMOVE AFTER 12 HOURS EXTERNALLY ONCE A DAY TO AREA OF PAIN ON CHEST AND BACK FRO POST HERPETIC NEURALGIA TAKING ERGOCALCIFEROL 85656 IU TABLET 1 TABLET ORALLY WEEKLY TAKING PANTOPRAZOLE SODIUM 40 MG TABLET DELAYED RELEASE 1 TABLET ORALLY ONCE A DAY TAKING REPATHA 140MG/ML INJECTION INTRAMUSCULARLY EVERY OTHER WEEK TAKING AMITRIPTYLINE HCL 75 MG TABLET 1 TABLET AT BEDTIME ORALLY ONCE A DAY TAKING ATORVASTATIN CALCIUM 80 MG TABLET 1 TABLET ORALLY ONCE A DAY TAKING GABAPENTIN 600 MG TABLET 2 ORALLY THREE TIMES A DAY TAKING BUTRANS 5 MCG/HR PATCH WEEKLY 1 PATCH TO SKIN TRANSDERMAL WEEKLY MEDICATION LIST REVIEWED AND RECONCILED WITH THE PATIENT PAST MEDICAL HISTORY HYPERLIPIDEMIA - LDL = 245 VITAMIN D DEFICIENCY ECHO - NORMAL 09/2019 CAROTID US 09/2019 - NO HEMODYNAMICALLY SIGNIFICANT NARROWING RENAL US - NORMAL OTHER THAN DECREASED AORTIC VELOCITIES - CTA OR MRA RECOMMENDED TO EVALUATE AORTA 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 S/PLEFT EXTERNAL ILIAC AND COMMON ILIAC BALLOON EXPANDABLE STENTS X 4. SCHEDULED FOR BL COMMON FEMORAL ENDARTERECTOMIES WITH PATCH ANGIOPLASTY AND LEFT TO RIGHT FEMPOP BYPASS 03/2020 - STRESS SPECT MYOCARDIAL PERFUSION STUDY - LOW RISK SMOKER LUMBAR DDD AND SPINA BIFIDA PER L-S SPINE - FOLLOWING WITH VIRIDIANA STAHL ALLERGIES MORPHINE SULFATE SURGICAL HISTORY KNEE ARTHROSCOPY-LEFT 1992 KNEE SURGERYLEFT 1992 LEFT EXTERNAL ILIAC AND COMMON ILIAC BALLOON EXPNDABLE STENTS X 4 12/2019 SOCIAL HISTORY GENERAL: TOBACCO USE ARE YOU A:CURRENT SMOKER HOW OFTEN DO YOU SMOKE CIGARETTES?EVERY DAY HOW SOON AFTER YOU WAKE UP DO YOU SMOKE YOUR FIRST CIGARETTE?WITHIN 5 MIN HOW MANY CIGARETTES A DAY DO YOU SMOKE?11-20 ARE YOU INTERESTED IN QUITTING?NOT READY TO QUIT PATIENT COUNSELED ON THE DANGERS OF TOBACCO USE AND URGED TO QUIT:08/24/2019 COUNSELED THE PATIENT ON SMOKING EFFECTS, EDUCATION [id number]/12/2021 LATEX QUESTIONNAIRE LATEX ALLERGY : HAVE YOU EVER DEVELOPED ANY TYPE OF REACTION AFTER HANDLING LATEX PRODUCTS SUCH RUBBER GLOVES, CONDOMS, DIAPHRAGMS, BALLOONS, SOCKS, OR UNDERWEAR?NO LATEX ALLERGY : HAVE YOU EVER DEVELOPED ANY TYPE OF REACTION DURING OR AFTER DENTAL APPOINTMENT, VAGINAL/RECTAL EXAMINATION, SURGICAL PROCEDURE, OR ANY OTHER EXPOSURE?NO DATE ASKED : 01/11/2021 LATEX RISK : HAVE YOU EVER HAD ANY DIFFICULTY BREATHING OR HIVES AFTER EATING OR HANDLING ANY FRUITS, OR VEGETABLES; SUCH KIWI, BANANAS, STONE FRUITS, OR CHESTNUTSNO LATEX RISK : DO YOU HAVE A PREVIOUS PERSONAL HISTORY OF MORE THAN NINE SURGERIES, SPINA BIFIDA, OR REPEATED CATHERIZATIONS? NO LATEX RISK : ARE YOU FREQUENTLY EXPOSED TO LATEX PRODUCTS IN YOUR OCCUPATION?NO ALCOHOL USE: YES. 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 DIET: REGULAR. EXERCISE: NO REGULAR EXERCISE. MARITAL STATUS: SINGLE. OTHERS AT HOME: CHILD. - HAS THE PATIENT BEEN EDUCATED REGARDING HIS/HER PLAN OF CARE?YES HAS THE PATIENT BEEN EDUCATED REGARDING PAIN, THE RISK FOR PAIN, THE IMPORTANCE OF EFFECTIVE PAIN MANAGEMENT, AND THE PAIN ASSESSMENT PROCESS?YES ADVANCE DIRECTIVE ADVANCE DIRECTIVE DISCUSSED WITH PATIENT:NO NO ADVANCED CARE DIRECTIVES. PATIENT OFFERED INFORMATION AND REFUSED AT THIS TIME. 11/13/2020 J.H REVIEW OF SYSTEMS CONSTITUTIONAL: ANY RECENT FEVER NO . CHILLS NO . WEIGHT CHANGE OF UNKNOWN REASONS NO . GASTROENTEROLOGY: NEW UNEXPLAINABLE CHANGES IN BOWEL CONTROL NO . CONSTIPATION NO . GENITOURINARY: ANY NEW CHANGE IN BLADDER CONTROL? NO . NEUROLOGY: NEW ONSET DIZZINESS OR NEUROLOGICAL CHANGES NOT MENTIONED NO . NEW NUMBNESS OR PAIN PATTERNS NOT MENTIONED AND PERTINENT TO TODAY'S VISIT NO . CARDIOLOGY: NEW CHEST PRESSURE NO . PATIENT DENIES NO . RESPIRATORY: UNEXPLAINABLE COUGH NO . NEW SHORTNESS OF BREATH NO . VITAL SIGNS WT 181.2 LBS, HT 68", BMI 27.55 INDEX, BP 109/66 MM HG, HR 115 /MIN, RR 18 /MIN, TEMP 97.0 F, OXYGEN SAT % 97%, NA INITIALS AW 0849, REVIEWED BY: EM. EXAMINATION GENERAL EXAMINATION: GENERALNO ACUTE DISTRESS, WELL NOURISHED AND HYDRATED. PSYCHAPPROPRIATE MOOD AND AFFECT . LUNGS:CLEAR TO AUSCULTATION BILATERALLY, NO WHEEZES, RHONCHI, RALES. HEART:NO MURMURS, REGULAR RATE AND RHYTHM. 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 GIVEN PRESENTING SYMPTOMS RECOMMEND INCREASING MEDICATION TO 10MCG'S WITH FOLLOW UP IN 2 MONTHS TO DETERMINE EFFICACY OF TREATMENT. PATIENT HAS EXPRESSED UNDERSTANDING OF AND WAS IN AGREEMENT WITH TREATMENT PLAN. GIVEN TIME TO ASK QUESTIONS AND EXPRESS CONCERNS. ISTOP REGISTRY REVIEWED AND DEMONSTRATES COMPLLIANCE. (REF #[id number] ) BRINGS IN MEDICATIONS WHICH IS APPROPRIATE FOR WHAT WAS DISPENSED. RECENT URINE TOXICOLOGY REVIEWED. NO UNAUTHORIZED MEDICATIONS. NO ILLICIT SUBSTANCES AND PRESCRIBED MEDICATIONS WERE PRESENT. PROCEDURE CODES FA211 ESTABILISHED PATIENT [facility] CHARGE DISPOSITION & COMMUNICATION FOLLOW UP 2 MONTHS (REASON: POST HERPETIC NEURALGIA ) ELECTRONICALLY SIGNED BY ANYA SALAS ON 03/14/2021 AT 01:28 PM EDT DISCLAIMER : THIS IS A VISIT SUMMARY EXTRACTED FROM THE [employer] CHART. IT IS NOT A COPY OF THE [employer] PROGRESS NOTE. CORY
== END ==
LOC: M PAIN 09:00
PROVIDERS: ATTEND Family Medicine
DX: B02.29 Other postherpetic nervous system involvement (principal); G89.29 Other chronic pain; F17.210 Nicotine dependence, cigarettes, uncomplicated; Z88.5 Allergy status to narcotic agent; Z79.82 Long term (current) use of aspirin; Z79.891 Long term (current) use of opiate analgesic; Z79.899 Other long term (current) drug therapy

== ENCOUNTER → 2021-03-15 | Outpatient (REF) | payer OTHER ==
[2021-03-15 13:52] LABS: HEMATOCRIT 39.5 % (36.0-47.0); HEMOGLOBIN 12.4 g/dl (12.0-15.5); MEAN CORPUSCULAR HEMOGLOBIN 27.7 pg (27.0-33.0); MEAN CORPUSCULAR HGB CONC 31.4 g/dl (32.0-36.5); MEAN CORPUSCULAR VOLUME 88.2 fl (80.0-96.0); PLATELET COUNT, AUTOMATED 428 10^3/uL (150-450); RED BLOOD COUNT 4.48 10^6/uL (4.00-5.40); WHITE BLOOD COUNT 8.1 10^3/uL (4.0-10.0)
[2021-03-15 14:25] LABS: ALBUMIN 3.6 GM/DL (3.2-5.2); ALT/SGPT 17 U/L (12-78); BILIRUBIN,TOTAL 0.4 MG/DL (0.2-1.0); BLOOD UREA NITROGEN 6 MG/DL (7-18); CALCIUM LEVEL 10.3 MG/DL (8.5-10.1); CARBON DIOXIDE LEVEL 30 MEQ/L (21-32); CHLORIDE LEVEL 106 MEQ/L (98-107); CHOLESTEROL LEVEL 187 MG/DL (<200); CHOLESTEROL RISK RATIO 4.155 (<5); CREATININE FOR GFR 0.84 MG/DL (0.55-1.30); GLOMERULAR FILTRATION RATE > 60.0 (>51); GLUCOSE, FASTING 97 MG/DL (70-100); HDL CHOLESTEROL 45 MG/DL (>40); LDL CHOLESTEROL 102 MG/DL (<100); NON-HDL-C 142 MG/DL; POTASSIUM SERUM 5.1 MEQ/L (3.5-5.1); SODIUM LEVEL 140 MEQ/L (136-145); TOTAL PROTEIN 7.1 GM/DL (6.4-8.2); TRIGLYCERIDES LEVEL 201 MG/DL (<150)
[2021-03-15 14:27] LABS: TOTAL 25(OH) VITAMIN D 96.1 NG/ML (30.0-100.0)
== END ==
LOC: M SFHCADAM 07:46
PROVIDERS: ATTEND Physician Assistant
DX: E78.00 Pure hypercholesterolemia, unspecified (principal); F17.218 Nicotine dependence, cigarettes, with other nicotine-induced disorders; I73.9 Peripheral vascular disease, unspecified; E55.9 Vitamin D deficiency, unspecified

== ENCOUNTER → 2021-05-13 | Outpatient (CLI) | payer OTHER ==
[~2021-05-13] MED LIST changes: +ERGO500029 PO; -VITA50005 PO
== END ==
LOC: M PAIN 09:15
PROVIDERS: ATTEND Family Medicine
DX: B02.29 Other postherpetic nervous system involvement (principal); G89.29 Other chronic pain; F17.210 Nicotine dependence, cigarettes, uncomplicated; Z88.5 Allergy status to narcotic agent; Z79.82 Long term (current) use of aspirin; Z79.899 Other long term (current) drug therapy

== ENCOUNTER → 2021-07-02 | Outpatient (CLI) | payer OTHER | LOC: M PAIN 10:00 | PROVIDERS: ATTEND Anesthesiology | DX: Z79.891 Long term (current) use of opiate analgesic (principal) ==

== ENCOUNTER → 2021-08-23 | Outpatient (CLI) | payer OTHER | LOC: M PAIN 10:00 | PROVIDERS: ATTEND Anesthesiology | DX: B02.29 Other postherpetic nervous system involvement (principal); G89.29 Other chronic pain; E55.9 Vitamin D deficiency, unspecified; Z88.5 Allergy status to narcotic agent; Z79.82 Long term (current) use of aspirin; Z79.891 Long term (current) use of opiate analgesic; Z79.899 Other long term (current) drug therapy ==

== ENCOUNTER → 2021-09-03 | Outpatient (CLI) | payer OTHER ==
--- NOTE | 2021-09-03 14:35 | REP ---
INDICATION: STENOSIS COMPARISON: 09/13/2019. TECHNIQUE: Real-time ultrasound evaluation and duplex Doppler interrogation of the extracranial carotid vasculature is performed. FINDINGS: There is mild to moderate plaquing and narrowing in both carotid bulbs extending into the internal and external carotid arteries. Luminal narrowing is less than 50%. There is no evidence of hemodynamically significant stenosis of either internal carotid artery. Normal flow velocities are seen. The right vertebral artery demonstrates normal direction of flow. The left vertebral artery is not visualized. RIGHT LEFT Peak systolic velocity ICA 68.9 cm/s 102.0 cm/s End diastolic velocity ICA 22.7 cm/s 38.2 cm/s Peak systolic velocity CCA 86.4 cm/s 97.6cm/s Peak systolic velocity ECA 98.4 cm/s 83.2 cm/s ICA/CCA ratio 0.80 1.05 IMPRESSION: Bilateral luminal narrowing of the internal carotid arteries less than 50%. No evidence of hemodynamically significant stenosis. The left vertebral artery is not visualized. <Electronically signed by Ap Eden > 09/03/21 [id number]
== END ==
LOC: M RAD 09:59
PROVIDERS: ATTEND Physician Assistant
DX: I65.23 Occlusion and stenosis of bilateral carotid arteries (principal)

== ENCOUNTER → 2021-11-12 | Outpatient (CLI) | payer OTHER | LOC: M WHC 14:58 | PROVIDERS: ATTEND Physician Assistant | DX: Z12.31 Encounter for screening mammogram for malignant neoplasm of breast (principal) ==

== ENCOUNTER → 2021-11-26 | Outpatient (CLI) | payer OTHER | LOC: M PAIN 09:15 | PROVIDERS: ATTEND Anesthesiology | DX: B02.29 Other postherpetic nervous system involvement (principal); E55.9 Vitamin D deficiency, unspecified; Z88.5 Allergy status to narcotic agent; Z79.82 Long term (current) use of aspirin; Z79.899 Other long term (current) drug therapy ==

== ENCOUNTER → 2021-12-03 | Outpatient (CLI) | payer MEDICARE, OTHER | LOC: M PLAIMG 09:53 | PROVIDERS: ATTEND Physician Assistant | DX: M51.37 Other intervertebral disc degeneration, lumbosacral region (principal); M51.36 Other intervertebral disc degeneration, lumbar region ==

== ENCOUNTER → 2022-02-06 | Outpatient (CLI) | payer MEDICARE, OTHER | LOC: M PAIN 10:15 | PROVIDERS: ATTEND Anesthesiology | DX: B02.29 Other postherpetic nervous system involvement (principal); G89.29 Other chronic pain; E55.9 Vitamin D deficiency, unspecified; F17.210 Nicotine dependence, cigarettes, uncomplicated; Z88.5 Allergy status to narcotic agent; Z79.82 Long term (current) use of aspirin; Z79.899 Other long term (current) drug therapy ==

== ENCOUNTER → 2022-02-20 | Outpatient (REF) | payer MEDICARE ==
[2022-02-20 12:45] LABS: HEMATOCRIT 40.9 % (36.0-47.0); HEMOGLOBIN 12.8 g/dl (12.0-15.5); MEAN CORPUSCULAR HEMOGLOBIN 26.4 pg (27.0-33.0); MEAN CORPUSCULAR HGB CONC 31.3 g/dl (32.0-36.5); MEAN CORPUSCULAR VOLUME 84.3 fl (80.0-96.0); PLATELET COUNT, AUTOMATED 386 10^3/uL (150-450); RED BLOOD COUNT 4.85 10^6/uL (4.00-5.40); WHITE BLOOD COUNT 8.5 10^3/uL (4.0-10.0)
[2022-02-20 13:40] LABS: ALBUMIN 3.9 GM/DL (3.2-5.2); ALT/SGPT 23 U/L (12-78); BILIRUBIN,TOTAL 0.3 MG/DL (0.2-1.0); BLOOD UREA NITROGEN 7 MG/DL (7-18); CALCIUM LEVEL 9.6 MG/DL (8.5-10.1); CARBON DIOXIDE LEVEL 27 MEQ/L (21-32); CHLORIDE LEVEL 104 MEQ/L (98-107); CHOLESTEROL LEVEL 163 MG/DL (<200); CREATININE FOR GFR 0.96 MG/DL (0.55-1.30); FREE T4 0.91 NG/DL (0.76-1.46); GLOMERULAR FILTRATION RATE > 60.0 (>51); GLUCOSE, FASTING 92 MG/DL (70-100); HDL CHOLESTEROL 50 MG/DL (>40); LDL CHOLESTEROL 95 MG/DL (<100); NON-HDL-C 113 MG/DL; POTASSIUM SERUM 4.3 MEQ/L (3.5-5.1); SODIUM LEVEL 138 MEQ/L (136-145); TOTAL PROTEIN 7.3 GM/DL (6.4-8.2); TRIGLYCERIDES LEVEL 90 MG/DL (<150)
== END ==
LOC: M SFHCADAM 08:18
PROVIDERS: ATTEND Physician Assistant
DX: Z12.4 Encounter for screening for malignant neoplasm of cervix (principal); R87.5 Abnormal microbiological findings in specimens from female genital organs; F17.218 Nicotine dependence, cigarettes, with other nicotine-induced disorders; I73.9 Peripheral vascular disease, unspecified; E78.00 Pure hypercholesterolemia, unspecified

== ENCOUNTER → 2022-03-06 | Outpatient (CLI) | payer MEDICARE, OTHER ==
[2022-03-06 12:46] LABS: INR 0.9; PROTHROMBIN TIME 12.6 SECONDS (12.7-14.5)
[2022-03-06 12:47] LABS: PARTIAL THROMBOPLASTIN TIME 33.7 SECONDS (25.9-37.0)
[2022-03-06 13:02] LABS: PLATELET COUNT, AUTOMATED 324 10^3/uL (150-450)
== END ==
LOC: M ADAMS 09:52
PROVIDERS: ATTEND Physician Assistant
DX: M47.816 Spondylosis without myelopathy or radiculopathy, lumbar region (principal)

== ENCOUNTER → 2022-08-22 | Outpatient (REF) | payer MEDICARE ==
[2022-08-22 13:59] LABS: ALBUMIN 3.9 GM/DL (3.2-5.2); ALT/SGPT 21 U/L (12-78); BILIRUBIN,TOTAL 0.5 MG/DL (0.2-1.0); BLOOD UREA NITROGEN 7 MG/DL (7-18); CALCIUM LEVEL 9.8 MG/DL (8.5-10.1); CARBON DIOXIDE LEVEL 26 MEQ/L (21-32); CHLORIDE LEVEL 105 MEQ/L (98-107); CHOLESTEROL LEVEL 210 MG/DL (<200); CREATININE FOR GFR 0.87 MG/DL (0.55-1.30); GLOMERULAR FILTRATION RATE > 60.0 (>51); GLUCOSE, FASTING 93 MG/DL (70-100); HDL CHOLESTEROL 50 MG/DL (>40); LDL CHOLESTEROL 127 MG/DL (<100); NON-HDL-C 160 MG/DL; POTASSIUM SERUM 4.6 MEQ/L (3.5-5.1); SODIUM LEVEL 137 MEQ/L (136-145); TOTAL PROTEIN 7.6 GM/DL (6.4-8.2); TRIGLYCERIDES LEVEL 165 MG/DL (<150)
[2022-08-22 14:51] LABS: TOTAL 25(OH) VITAMIN D 102.8 NG/ML (30.0-100.0)
== END ==
LOC: M SFHCADAM 08:31
PROVIDERS: ATTEND Physician Assistant
DX: E78.00 Pure hypercholesterolemia, unspecified (principal); E55.9 Vitamin D deficiency, unspecified; Z79.899 Other long term (current) drug therapy

== ENCOUNTER → 2022-12-22 | Outpatient (REF) | payer MEDICARE ==
[2022-12-22 14:24] LABS: ALBUMIN 3.5 G/DL (3.2-5.2); BILIRUBIN,DIRECT 0.2 MG/DL (<0.4); BILIRUBIN,TOTAL 0.4 MG/DL (0.3-1.2); CHOLESTEROL RISK RATIO 1.88 (<5); HDL CHOLESTEROL 51.5 MG/DL (>40); LDL CHOLESTEROL 21.7 MG/DL (<100); TOTAL PROTEIN 6.5 G/DL (5.7-8.2)
== END ==
LOC: M LABDRWAD 13:29
PROVIDERS: ATTEND Physician Assistant
DX: E78.01 Familial hypercholesterolemia (principal); I73.9 Peripheral vascular disease, unspecified; I65.23 Occlusion and stenosis of bilateral carotid arteries

== ENCOUNTER → 2023-09-29 | Outpatient (CLI) | payer MEDICARE ==
[2023-09-29 13:27] LABS: HEMATOCRIT 45.1 % (36.0-47.0); HEMOGLOBIN 14.7 g/dl (12.0-15.5); MEAN CORPUSCULAR HEMOGLOBIN 29.8 pg (27.0-33.0); MEAN CORPUSCULAR HGB CONC 32.6 g/dl (32.0-36.5); MEAN CORPUSCULAR VOLUME 91.5 fl (80.0-96.0); PLATELET COUNT, AUTOMATED 310 10^3/uL (150-450); RED BLOOD COUNT 4.93 10^6/uL (4.00-5.40)
[2023-09-29 14:07] LABS: ALBUMIN 3.9 G/DL (3.2-5.2); ALKALINE PHOSPHATASE 102 U/L (46-116); ALT/SGPT 31 U/L (7.0-40); AST/SGOT 22 U/L (<34); BILIRUBIN,TOTAL 0.4 MG/DL (0.3-1.2); BLOOD UREA NITROGEN 6 MG/DL (9-23); CALCIUM LEVEL 9.7 MG/DL (8.5-10.1); CARBON DIOXIDE LEVEL 28 MMOL/L (20-31); CHLORIDE LEVEL 102 MMOL/L (98-107); CHOLESTEROL LEVEL 118 MG/DL (<200); CREATININE FOR GFR 0.82 MG/DL (0.55-1.30); FOLATE 9.1 NG/ML (>5.4); GLOMERULAR FILTRATION RATE > 60.0 (>51); GLUCOSE, FASTING 91 MG/DL (60-100); HDL CHOLESTEROL 51.2 MG/DL (>40); LDL CHOLESTEROL 25.8 MG/DL (<100); NON-HDL-C 66.8 MG/DL; SODIUM LEVEL 137 MMOL/L (136-145); TRIGLYCERIDES LEVEL 205 MG/DL (<150); VITAMIN B12 LEVEL 304 PG/ML (211-911)
== END ==
LOC: M RAD 08:55 → M SFHCADAM 08:55
PROVIDERS: ATTEND Physician Assistant
DX: I73.9 Peripheral vascular disease, unspecified (principal); F17.218 Nicotine dependence, cigarettes, with other nicotine-induced disorders; B02.29 Other postherpetic nervous system involvement; E78.00 Pure hypercholesterolemia, unspecified; Z23 Encounter for immunization

== ENCOUNTER → 2023-10-13 | Outpatient (CLI) | payer MEDICARE | LOC: M WHC 08:28 | PROVIDERS: ATTEND Physician Assistant | DX: Z12.31 Encounter for screening mammogram for malignant neoplasm of breast (principal) ==

== ENCOUNTER → 2023-12-14 | Outpatient (CLI) | payer MEDICARE | LOC: M RAD 08:58 | PROVIDERS: ATTEND Physician Assistant | DX: Z12.2 Encounter for screening for malignant neoplasm of respiratory organs (principal); F17.218 Nicotine dependence, cigarettes, with other nicotine-induced disorders ==

== ENCOUNTER → 2024-04-29 | Outpatient (REF) | payer MEDICARE | LOC: M SFHCADAM 08:57 | PROVIDERS: ATTEND Physician Assistant | DX: Z12.11 Encounter for screening for malignant neoplasm of colon (principal) ==

== ENCOUNTER → 2024-05-02 | Outpatient (REF) | payer MEDICARE ==
[2024-05-02 13:38] LABS: ALBUMIN 3.7 G/DL (3.2-5.2); ALKALINE PHOSPHATASE 98 U/L (46-116); ALT/SGPT 17 U/L (7.0-40); AST/SGOT < 8 U/L (<34); BILIRUBIN,TOTAL 0.5 MG/DL (0.3-1.2); BLOOD UREA NITROGEN 6 MG/DL (9-23); CALCIUM LEVEL 9.7 MG/DL (8.5-10.1); CARBON DIOXIDE LEVEL 28 MMOL/L (20-31); CHLORIDE LEVEL 111 MMOL/L (98-107); GLOMERULAR FILTRATION RATE > 60.0 (>51); GLUCOSE, FASTING 92 MG/DL (60-100); POTASSIUM SERUM 4.3 MMOL/L (3.5-5.1); SODIUM LEVEL 142 MMOL/L (136-145); TOTAL PROTEIN 6.6 G/DL (5.7-8.2)
[2024-05-02 13:40] LABS: HEMATOCRIT 44.1 % (36.0-47.0); HEMOGLOBIN 14.7 g/dl (12.0-15.5); MEAN CORPUSCULAR HEMOGLOBIN 31.7 pg (27.0-33.0); MEAN CORPUSCULAR HGB CONC 33.3 g/dl (32.0-36.5); MEAN CORPUSCULAR VOLUME 95.2 fl (80.0-96.0); PLATELET COUNT, AUTOMATED 276 10^3/uL (150-450); RED BLOOD COUNT 4.63 10^6/uL (4.00-5.40)
[2024-05-02 13:42] LABS: THYROID STIMULATING HORMONE 3.216 uIU/ML (0.55-4.78)
[2024-05-02 13:43] LABS: FREE T4 0.93 NG/DL (0.89-1.76)
[2024-05-02 14:31] LABS: HEMOGLOBIN A1c 5.4 % (4.0-6.0)
[2024-05-03 14:12] LABS: MUMPS VIRUS IgG ANTIBODY < 9.00 AU/mL (>10.99); RUBEOLA IgG ANTIBODY < 13.50 AU/mL (>16.49)
== END ==
LOC: M SFHCADAM 09:17
PROVIDERS: ATTEND Physician Assistant
DX: Z00.00 Encounter for general adult medical examination without abnormal findings (principal); F17.218 Nicotine dependence, cigarettes, with other nicotine-induced disorders; I73.9 Peripheral vascular disease, unspecified; Z12.11 Encounter for screening for malignant neoplasm of colon; Z13.1 Encounter for screening for diabetes mellitus; R63.5 Abnormal weight gain

== ENCOUNTER → 2024-05-03 | Outpatient (REF) | payer MEDICARE | LOC: M SFHCDERM 17:16 | PROVIDERS: ATTEND Nurse Practitioner Family | DX: D22.5 Melanocytic nevi of trunk (principal) ==

== ENCOUNTER → 2024-06-20 | Outpatient (CLI) | payer MEDICARE ==
[~2024-06-20] MED LIST changes: +ISOVUE-370 76% 100ML VIAL As Ordered ONE
== END ==
LOC: M RAD 13:45
PROVIDERS: ATTEND Surgery Vascular Surgery
DX: I70.213 Atherosclerosis of native arteries of extremities with intermittent claudication, bilateral legs (principal); Z95.828 Presence of other vascular implants and grafts
CPT/HCPCS: 75635; Q9967

== ENCOUNTER → 2024-10-11 | Outpatient (CLI) | payer MEDICARE ==
[~2024-10-11] MED LIST changes: +GABA-1172 PO; -GABA-282 PO; -ISOVUE-370 76% 100ML VIAL As Ordered ONE
[2024-10-11 14:49] LABS: HEMATOCRIT 43.8 % (36.0-47.0); HEMOGLOBIN 14.4 g/dl (12.0-15.5); MEAN CORPUSCULAR HEMOGLOBIN 30.9 pg (27.0-33.0); MEAN CORPUSCULAR HGB CONC 32.9 g/dl (32.0-36.5); PLATELET COUNT, AUTOMATED 319 10^3/uL (150-450); RED BLOOD COUNT 4.66 10^6/uL (4.00-5.40); WHITE BLOOD COUNT 7.8 10^3/uL (4.0-10.0)
[2024-10-11 14:56] LABS: ALBUMIN 3.5 G/DL (3.2-5.2); ALKALINE PHOSPHATASE 86 U/L (35-104); ALT/SGPT 17 U/L (7.0-40); AST/SGOT 13 U/L (<34); BILIRUBIN,TOTAL 0.3 MG/DL (0.3-1.2); BLOOD UREA NITROGEN < 5 MG/DL (9-23); CALCIUM LEVEL 10.1 MG/DL (8.5-10.1); CARBON DIOXIDE LEVEL 28 MMOL/L (20-31); CHLORIDE LEVEL 106 MMOL/L (98-107); CHOLESTEROL LEVEL 168 MG/DL (<200); CHOLESTEROL RISK RATIO 3.99 (<5); CREATININE FOR GFR 0.84 MG/DL (0.55-1.30); GLOMERULAR FILTRATION RATE > 60.0 (>51); GLUCOSE, FASTING 101 MG/DL (60-100); HDL CHOLESTEROL 42.1 MG/DL (>40); LDL CHOLESTEROL 85.9 MG/DL (<100); NON-HDL-C 125.9 MG/DL; POTASSIUM SERUM 4.4 MMOL/L (3.5-5.1); SODIUM LEVEL 140 MMOL/L (136-145); TOTAL PROTEIN 6.8 G/DL (5.7-8.2); TRIGLYCERIDES LEVEL 200 MG/DL (<150)
== END ==
LOC: M WHC 08:57
PROVIDERS: ATTEND Physician Assistant
DX: Z12.31 Encounter for screening mammogram for malignant neoplasm of breast (principal); R91.1 Solitary pulmonary nodule; F17.218 Nicotine dependence, cigarettes, with other nicotine-induced disorders; I73.9 Peripheral vascular disease, unspecified; E78.00 Pure hypercholesterolemia, unspecified; M51.360 Other intervertebral disc degeneration, lumbar region with discogenic back pain only; Z28.21 Immunization not carried out because of patient refusal

== ENCOUNTER → 2024-11-09 | Outpatient (CLI) | payer MEDICARE | LOC: M RAD 12:05 | PROVIDERS: ATTEND Physician Assistant | DX: R91.1 Solitary pulmonary nodule (principal) ==

== ENCOUNTER → 2025-07-12 | Outpatient (REF) | payer MEDICARE, MEDICAID | LOC: M SFHCADAM 09:05 | PROVIDERS: ATTEND Physician Assistant | DX: Z11.1 Encounter for screening for respiratory tuberculosis (principal) ==

== ENCOUNTER → 2025-07-14 | Outpatient (CLI) | payer MEDICARE, MEDICAID | LOC: M RAD 11:28 | PROVIDERS: ATTEND Physician Assistant | DX: I70.212 Atherosclerosis of native arteries of extremities with intermittent claudication, left leg (principal) ==